=== PATIENT | female | born 1945 | race Caucasian/White ===

== ENCOUNTER 2016-12-27 19:38 | Inpatient (IN) | payer MEDICARE ==
[~2016-12-27] VITALS: Ht 165.1 cm; Wt 67.7 kg
[~2016-12-27 19:38] MED LIST: ACET-171 PO; AMLO5TAB2 PO; ASPI-973 PO; CALC1CAP22 PO; CHOL500050 PO; GABA-500 PO; HYDR25TA4 PO; LACT1CAP65 PO; LOSA50TA37 PO; METO50TA3 PO; MULT-1018 PO; PSYL1CAP3 PO; TOLT2TAB5 PO
[2016-12-27 19:40] VITALS: BP 129/64; PULSE 84; RESP 16; O2SAT 98
--- NOTE | 2016-12-27 19:58 | ED.REPORT ---
HPI-Abd Pain F 40 and Over Date of Service Dec 27, 2016 ED Provider: Kayleigh Ruiz MD Patient is a 71 year old female with a history of colon cancer, multiple small bowel obstructions, diverticulitis, partial colon resection with prior colostomy , and hypertension who presents to the ED with abdominal pain and nausea that began this morning. Patient localized her pain to her upper abdomen, more severe on the left than on the right. The pain waxes and wanes, both cramping and sharp. Her abdomen feels distended. Her pain is improved with laying down and rest. She reports only eating broth and Jell-o today, which sometimes is enough to stop her symptoms from progressing to a small bowel obstruction. However, her symptoms have only increased in severity since onset. She last had a bowel movement at 10am this morning and believes that she could have another bowel movement soon. She has not had diarrhea. Patient reports having a "sour stomach", with the sensation of acid reflux. She reports a subjective fever and chills. Patient states that she has not been able to eat or drink for the past few hours. She denies vomiting. Patient was last admitted to the hospital for a small bowel obstruction in June 2016, which did not require surgical intervention. Nursing Notes Stated Complaint: SBO Chief Complaint: Female Abdominal Pain Nursing Notes Reviewed: Yes Allergies: Coded Allergies: TAPE (Verified Allergy, Severe, BLISTERS (PAPER OK), 06/16/16) PLASTIC TAPE CAUSES SEVERE RASH 05/08/15: Pt reports she had an allergic reaction specifically to latex tape. latex (Verified Allergy, Unknown, 06/16/16) Scheduled Amlodipine (Amlodipine) 5 Mg Tablet 5 MG PO HS Aspirin (Aspirin) 81 Mg Tablet 81 MG PO DAILYWL Calcium Carbonate/Vitamin D3 (Calcium 500 mg Chewable Tablet) 1 Each Tab.chew 1 EACH PO QAM Cholecalciferol (Vitamin D3) (Vitamin D3) 50,000 Unit Capsule 50,000 UNIT PO Sundays Gabapentin (Gabapentin) 100 Mg Capsule 300 MG PO BID Hydrochlorothiazide (Hydrochlorothiazide) 25 Mg Tablet 12.5 MG PO QAM Lactobacillus Acidophilus (Probiotic) 1 Each Capsule 1 EACH PO DAILYWL Losartan Potassium (Losartan Potassium) 50 Mg Tablet 100 MG PO QAM Metoprolol Tartrate (Metoprolol Tartrate) 50 Mg Tablet 50 MG PO BIDBL morning and noon Multivitamin (Multi Vitamin Daily) 1 Each Tablet 1 EACH PO DAILYWL Psyllium Husk/Ca Carbonate (Metamucil Plus Calcium Capsule) 1 Each Capsule 1 EACH PO BID Tolterodine Tartrate (Tolterodine Tartrate) 2 Mg Tablet 2 MG PO BIDBL MORNING AND NOON Scheduled PRN Acetaminophen (Acetaminophen) 500 Mg Tablet 1,000 MG PO Q6H PRN PRN pain/fever General Time Seen by MD: 19:57 Chief Complaint Abdominal pain, Nausea Hx Obtained From: Patient Arrived By: Walk-in Sudden in Onset?: No Onset Occurred: 9 - 12 hours ago Symptom Duration: Waxes and wanes Progression since Onset: Gradually worsening Location: : Abdomen upper Quality: Painful Severity: Current: Severe Severity: Maximum: Severe Recent Healthcare: No recent doctor visit, No recent hospitalization Similar Sx Previous: Yes Past Medical History Past Medical History Colon cancer multiple small bowel obstructions Diverticulitis Reports: Hypertension Reports: Depression Past Surgical History Partial colon resection history of colostomy (reversed) Reports: Hysterectomy Smoking History Former Smoker Social History Alcohol Use: Denies alcohol use Drug Use: Denies drug use Other Social History: Good social support, Local resident Ambulatory Status Independent Review of Systems Constitutional: Reports: Chills, Fever (subjective) GI: Reports: Abdominal pain, Nausea, Denies: Constipation, Diarrhea, Vomiting Complete sys rev & neg: except as marked. Physical Exam Vital Signs Vital Signs (First) Date Time Temp Pulse Resp B/P Pulse Ox O2 Delivery O2 Flow Rate FiO2 12/27/16 19:40 37.1 84 16 129/64 98 Room Air Initial VS: Reviewed Head / Eyes: Atraumatic, Normocephalic, PERRL Neck: Supple, Full range of motion Extremities: Vascular intact, Neuro intact, No swelling Skin: Warm, Dry, No cyanosis Neurologic: Alert, Oriented, Nonfocal Psychiatric: Mood/affect normal, Behavior normal, Normal thought content General/Constitutional: Awake, Alert, No acute distress Respiratory / Chest: Breath sounds NL, Breath sounds = bilat, No respiratory distress, No rales, No rhonchi, No wheezing Cardiovascular: Heart rate NL, Regular rhythm, Heart sounds NL, No gallop, No murmurs, No rubs Abdomen: Soft, No guarding, No rebound Bowel Sounds / Distention: Positive: Bowel sounds hyperactive (high-pitched), Distention mild left-sided abdominal pain Back: Painless range of motion, No CVA tenderness Interpretation & Diagnostics Lab Results Interpretation Result Diagram: 12/27/16202412/27/162024 Test 12/27/16 20:25 12/27/16 22:33 White Blood Count 8.1th/mm3 (3.8-10.1) Red Blood Count 4.16mil/mm3 (3.90-5.20) Hemoglobin 14.3g/dL (12.0-15.6) Hematocrit 39.3% (35.0-46.0) Mean Corpuscular Volume 94.5fL (81-100) Mean Corpuscular Hemoglobin 34.4pg (27.0-35.0) Mean Corpuscular Hemoglobin Concent 36.4% (32.0-37.0) Red Cell Distribution Width 11.8% (12.3-15.4) Platelet Count 186bil/L (150-400) Neutrophils (%) (Auto) 76.5% (40-74) Lymphocytes (%) (Auto) 13.3% (14-46) Monocytes (%) (Auto) 6.4% (4-12) Eosinophils (%) (Auto) 3.2% (0-5) Basophils (%) (Auto) 0.5% (0-3) Sodium Level 137mEq/L (134-144) Potassium Level 3.3mEq/L (3.5-5.2) Chloride Level 99mEq/L (97-108) Carbon Dioxide Level 22mmol/L (18-29) Blood Urea Nitrogen 11mg/dL (8-27) Creatinine 0.63mg/dL (0.57-1.00) Estimat Glomerular Filtration Rate 133mL/min (>59) Glucose Level 109mg/dL (60-99) Lactic Acid Level 1.5mmol/L (0.4-2.0) Calcium Level 9.3mg/dL (8.5-10.1) Magnesium Level 1.9mg/dL (1.6-2.6) Total Bilirubin 0.5mg/dL (0.0-1.2) Aspartate Amino Transf (AST/SGOT) 22U/L (0-50) Alanine Aminotransferase (ALT/SGPT) 14U/L (0-32) Alkaline Phosphatase 51U/L (25-165) Total Protein 6.2g/dL (6.4-8.4) Albumin 3.9g/dL (3.4-5.0) Lipase 21U/L (13-60) Hold Davis Top Tube Received (Received) Urine Color Yellow (YELLOW) Urine Appearance Clear (CLEAR,HAZY) Urine pH 8.0 (5.0-8.0) Urine Specific [place] <1.005 (1.003-1.035) Urine Protein Negativemg/dL (NEG,TRACE) Urine Glucose (UA) Negativemg/dL (NEGATIVE) Urine Ketones Negativemg/dL (NEGATIVE) Urine Occult Blood Negative (NEGATIVE) Urine Nitrite Negative (NEGATIVE) Urine Bilirubin Negative (NEGATIVE) Urine Urobilinogen Normalmg/dL (NORMAL) Urine Leukocyte Esterase Negative (NEGATIVE) Urine RBC 0-2/hpf (0-2) Urine WBC 0-5/hpf (0-5) Urine Epithelial Cells Occasional/hpf (NONE-MOD) Urine Crystals None seen (NONE SEEN) Urine Bacteria Few/hpf (NONE-FEW) Urine Hyaline Casts None/lpf (NONE) Urine Granular Casts None seen (NONE SEEN) Urine Waxy Casts None seen (NONE SEEN) Urine Red Blood Cell Casts None seen (NONE SEEN) Urine White Blood Cell Casts None seen (NONE SEEN) Urine Mucus None seen (None Seen) Urine Trichomonas None seen (NONE SEEN) Urine Yeast None (NONE SEEN) Urinalysis Comment None Urine Culture Reflexed Not indicated CT Abd / Pelvis Interpretation IMPRESSION: 1. Findings compatible with small bowel obstruction with transition zone in the left lower quadrant. 2. Small cystic lesion in the uncinate process of the pancreas stable compared to prior examination. Lesion likely represents a small IPMN. 3. Small hepatic cyst stable compared to prior examinations. 4. No free intraperitoneal air. 5. Trace free fluid noted adjacent to dilated loops of small bowel in the left lower quadrant which may be related to developing high-grade partial or complete obstruction. 6. Short segment, focal stricture involving the small bowel left lower quadrant stable compared to prior examinations. Dictated by: Brenda Mann MD, PhD on 12/27/2016 at 22:01 Approved by: Brenda Mann MD, PhD on 12/27/2016 at 22:11 Study type: Abdom CT oral contrast Interpretation / Wet Read by: Interpret - Radiologist Re-Eval/Medical Decision Med Decision/Clinical Course 71-year-old female with past medical history of hypertension and hyperlipidemia and colon cancer status post partial resection and multiple bowel obstructions here with abdominal pain. Differential diagnosis includes but is not limited to , bowel obstruction versus partial small bowel obstruction versus pancreatitis versus urinary tract infection. CBC and lipase are unremarkable. CMP shows mild hypokalemia. CT scan shows high-grade small bowel obstruction and left lower quadrant. I discussed the case with surgery Dr. Medrano and hospitalist Dr Cancino who was accepted the patient for admission. Patient is not vomiting at this time, and has requested not to have an NG tube placed. At this time, I do not feel she needs one. Hospitalist agrees. Patient is aware and amenable to admission at this time. Source of Hx: Old records Re-Evaluation/Progress : Time of Eval: 22:27 Re-Evaluation/Progress Note: Rechecked the patient. She was informed that there is a small bowel obstruction on CT scan. She will need an NG tube. No acute problem on labs. Patient will be admitted to the hospital for further care. Patient understands and agrees with this plan. All questions were addressed. Consultation #1: Referral / Consult Name: Luna Medrano MD Consulted With: Surgeon Call Returned at: 22:17 [employer] Manager: Will see patient, Agrees with eval, Agrees with plan Note: Spoke with Dr. Medrano, surgeon, about the patient's case. She agrees to act as consult. She requests an NG tube. Consultation #2: Referral / Consult Name: Anna Cancino MD Consulted With: Hospitalist Call Returned at: 22:30 [employer] Hotel Manager: Will see patient, Agrees with eval, Agrees with plan, Accepts admit Note: Spoke with Dr Cancino, hospitalist, who agrees to accept admit. Counseled Regarding: Diagnosis, Lab results, Need for admission Discharge & Departure Primary Impression: Small bowel obstruction Disposition: ADMITTED TO HOSPITAL Discharge Condition All VS Reviewed: Yes Condition: Stable Referrals: Darius Haskins DO (PCP) Ramya Attestation Portions of this note were transcribed by Klaudia Milan. I, Dr. Ruiz personally performed the history, physical exam and medical decision-making; I reviewed and confirmed the accuracy of the information in the transcribed note. Signed by: Ramya Hook, 12/27/2016 2229 copies to: Darius Haskins Rebecca A MD Dec 27, 2016 19:58 Klaudia Milan Dec 27, 2016 20:05
[2016-12-27] MEDS ORDERED: 0.9% Sodium Chloride 1,000 ML IV ONE (20:13)
[2016-12-27] MEDS ORDERED: HYDROmorphone 1 mg/mL Inj IVPUSH ONE (20:15)
[2016-12-27] MEDS ORDERED: Ondansetron 2 mg/mL 2 mL Inj IVPUSH ONE (20:15)
[2016-12-27] MEDS ORDERED: Iohexol 240 mg/mL 10 mL Inj PO ONE (20:20)
[2016-12-27 20:40] LABS: BASOPHILS % (AUTO) 0.5 % (0-3); EOSINOPHILS % (AUTO) 3.2 % (0-5); MONOCYTES % (AUTO) 6.4 % (4-12); Mean Corpuscular Hemoglobin 34.4 pg (27.0-35.0); Mean Corpuscular Volume 94.5 fL (81-100); NEUTROPHILS % (AUTO) 76.5 % (40-74); Platelet Count 186 bil/L (150-400)
[2016-12-27] MEDS ORDERED: Iohexol 300 mg/mL 30 mL Inj PO ONE ×2 (20:40→20:45)
[2016-12-27 21:01] LABS: Magnesium 1.9 mg/dL (1.6-2.6)
[2016-12-27] MEDS ORDERED: 0.9% Sodium Chloride 500 ML IV ONE (21:25)
--- NOTE | 2016-12-27 22:12 | DRSVH ---
PROCEDURE: CT ABDOMEN AND PELVIS WITH CONTRAST ([id number]) INDICATIONS: Abdominal pain. History of small bowel obstruction. TECHNIQUE: After the administration of oral and intravenous contrast, 5 mm thick sections acquired from the diap hragms to the symphysis. 5 mm thick coronal and sagittal reformats were performed. For radiation do se reduction, the following was used: automated exposure control, adjustment of mA and/or kV accordi ng to patient size. COMPARISON: [facility], CT, CT ABD [facility] CON[facility]2016[facility], [facility]/2015, 20:45. [facility], CT, CT CHEST ABD PELVIS W CO N, 07/07/2016, 10:32. FINDINGS: Image quality: Excellent. ABDOMEN: Lung bases: Lung bases are clear. Heart size is normal. Solid organs: Liver and spleen are normal in size and enhancement. Small hypoattenuating lesion left lobe of the liver is stable compared to prior examination. Gallbladder is within normal limits. Fortino iary system is non-dilated. 8 mm cyst in the uncinate process of the pancreas is stable compared to p rior examinations. No adrenal nodules. Kidneys are normal in size and enhancement, without hydronep hrosis. Peritoneum and bowel: Multiple dilated loops of small bowel are noted. Loops of small bowel are dil ated to 3.5 cm in diameter. Transition zone is in the left lower quadrant. Short segment, focal str icture and left lower quadrant loop of small bowel is noted (series 2, image 50). No free air identi fied. Trace free fluid noted in the left lower pelvis adjacent to loops of dilated small bowel. Nodes and vessels: No retroperitoneal or mesenteric adenopathy. Aorta and inferior vena cava are no rmal in caliber. Miscellaneous: No ventral hernias. PELVIS: Genitourinary: Bladder is poorly visualized due to artifact related to hip arthroplasties. Miscellaneous: No inguinal hernias or adenopathy. Bones: No suspicious bony lesions. No vertebral body compression fractures. Spine degenerative disc disease and facet arthropathy are noted. Bilateral hip arthroplasties are noted. IMPRESSION: 1. Findings compatible with small bowel obstruction with transition zone in the left lower quadrant. 2. Small cystic lesion in the uncinate process of the pancreas stable compared to prior examination. Lesion likely represents a small IPMN. 3. Small hepatic cyst stable compared to prior examinations. 4. No free intraperitoneal air. 5. Trace free fluid noted adjacent to dilated loops of small bowel in the left lower quadrant which may be related to developing high-grade partial or complete obstruction. 6. Short segment, focal stricture involving the small bowel left lower quadrant stable compared to p rior examinations. Dictated by: Brenda Mann MD, PhD on 12/27/2016 at 22:01 Approved by: Brenda Mann MD, PhD on 12/27/2016 at 22:11
[2016-12-27] MEDS ORDERED: Ondansetron 2 mg/mL 2 mL Inj IVPUSH PRN ×2 (22:35→23:40)
[2016-12-27] MEDS ORDERED: Alum-Mag Hydrox-Simeth 30 mL Suspension PO PRN (22:35)
[2016-12-27 22:44] LABS: APPEARANCE,URINE CLEAR (CLEAR,HAZY); COLOR,URINE YELLOW (YELLOW); OCCULT BLOOD,URINE NEGATIVE (NEGATIVE); UROBILINOGEN,URINE NORMAL (NORMAL)
[2016-12-27 22:55] VITALS: BP 144/75; PULSE 83; RESP 16; O2SAT 97
[2016-12-27] MEDS ORDERED: CALC-952 PO (23:05)
[2016-12-27] MEDS ORDERED: Potassium Chloride Inj 20 MEQ in Dextrose 5% 250 ML IV ONE (23:40)
--- NOTE | 2016-12-27 23:59 | PCM.HPMED ---
Subjective Date of Service Dec 27, 2016 Primary Provider: Admitting Physician: Anna Cancino MD Primary Care Physician: Darius Haskins DO Attending Physician: Anna Cancino MD Admit Status: From the Emergency Department, Full Admit, Non-Telemetry Chief Complaint: Abdominal pain History of Present Illness: Is a 71-year-old female who has a history of colon cancer which was diagnosed 4 years ago. She comes in with recurrent small bowel obstructions. The last was 06/15/2016 which was managed here conservatively. She noted this morning she started having some abdominal pain with some nausea. She had no vomiting. She denies any fevers or chills. He will like her abdomen is distended. Her evaluation in the emergency room include CT of abdomen and pelvis with results as follows: atient Name: TEE ARIAS MR#: [id number] [place] [facility] [place] Phys: Kayleigh Ruiz MD Date of Service: 12/27/162012 PROCEDURE: CT ABDOMEN AND PELVIS WITH CONTRAST ([id number]) INDICATIONS: Abdominal pain. History of small bowel obstruction. TECHNIQUE: After the administration of oral and intravenous contrast, 5 mm thick sections acquired from the diaphragms to the symphysis. 5 mm thick coronal and sagittal reformats were performed. For radiation dose reduction, the following was used : automated exposure control, adjustment of mA and/or kV according to patient size. COMPARISON: [facility], CT, CT ABD PELVIS W CON, 06/15/2016, 22:19. [facility], CT, CT ABD PELVIS W CON, 08/09/2015, 20:45. [facility], CT, CT CHEST ABD PELVIS W CON, 07/07/2016, 10:32. FINDINGS: Image quality: Excellent. ABDOMEN: Lung bases: Lung bases are clear. Heart size is normal. Solid organs: Liver and spleen are normal in size and enhancement. Small hypoattenuating lesion left lobe of the liver is stable compared to prior examination. Gallbladder is within normal limits. Biliary system is non- dilated. 8 mm cyst in the uncinate process of the pancreas is stable compared to prior examinations. No adrenal nodules. Kidneys are normal in size and enhancement, without hydronephrosis. Peritoneum and bowel: Multiple dilated loops of small bowel are noted. Loops of small bowel are dilated to 3.5 cm in diameter. Transition zone is in the left lower quadrant. Short segment, focal stricture and left lower quadrant loop of small bowel is noted (series 2, image 50). No free air identified. Trace free fluid noted in the left lower pelvis adjacent to loops of dilated small bowel. Nodes and vessels: No retroperitoneal or mesenteric adenopathy. Aorta and inferior vena cava are normal in caliber. Miscellaneous: No ventral hernias. PELVIS: Genitourinary: Bladder is poorly visualized due to artifact related to hip arthroplasties. Miscellaneous: No inguinal hernias or adenopathy. Bones: No suspicious bony lesions. No vertebral body compression fractures. Spine degenerative disc disease and facet arthropathy are noted. Bilateral hip arthroplasties are noted. IMPRESSION: 1. Findings compatible with small bowel obstruction with transition zone in the left lower quadrant. 2. Small cystic lesion in the uncinate process of the pancreas stable compared to prior examination. Lesion likely represents a small IPMN. 3. Small hepatic cyst stable compared to prior examinations. 4. No free intraperitoneal air. 5. Trace free fluid noted adjacent to dilated loops of small bowel in the left lower quadrant which may be related to developing high-grade partial or complete obstruction. 6. Short segment, focal stricture involving the small bowel left lower quadrant stable compared to prior examinations. Dictated by: Brenda Mann MD, PhD on 12/27/2016 at 22:01 Approved by: Brenda Mann MD, PhD on 12/27/2016 at 22:11 Review of Systems: All other Review of systems are reviewed and are negative Allergies Coded Allergies: TAPE (Verified Allergy, Severe, BLISTERS (PAPER OK), 06/16/16) PLASTIC TAPE CAUSES SEVERE RASH 05/08/15: Pt reports she had an allergic reaction specifically to latex tape. latex (Verified Allergy, Unknown, 06/16/16) Home Medications Scheduled Amlodipine (Amlodipine) 5 Mg Tablet 5 MG PO HS Aspirin (Aspirin) 81 Mg Tablet 81 MG PO DAILYWL Calcium Carbonate/Vitamin D3 (Calcium 500 mg Chewable Tablet) 1 Each Tab.chew 1 EACH PO QAM Cholecalciferol (Vitamin D3) (Vitamin D3) 50,000 Unit Capsule 50,000 UNIT PO Sundays Gabapentin (Gabapentin) 100 Mg Capsule 300 MG PO BID Hydrochlorothiazide (Hydrochlorothiazide) 25 Mg Tablet 12.5 MG PO QAM Lactobacillus Acidophilus (Probiotic) 1 Each Capsule 1 EACH PO DAILYWL Losartan Potassium (Losartan Potassium) 50 Mg Tablet 100 MG PO QAM Metoprolol Tartrate (Metoprolol Tartrate) 50 Mg Tablet 50 MG PO BIDBL morning and noon Multivitamin (Multi Vitamin Daily) 1 Each Tablet 1 EACH PO DAILYWL Psyllium Husk/Ca Carbonate (Metamucil Plus Calcium Capsule) 1 Each Capsule 1 EACH PO BID Tolterodine Tartrate (Tolterodine Tartrate) 2 Mg Tablet 2 MG PO BIDBL MORNING AND NOON Scheduled PRN Acetaminophen (Acetaminophen) 500 Mg Tablet 1,000 MG PO Q6H PRN PRN pain/fever PMH Past Medical History Colon cancer multiple small bowel obstructions Diverticulitis Reports: Hypertension Reports: Depression Past Surgical History Partial colon resection history of colostomy (reversed) Reports: Hysterectomy Family History Family history significant for ovarian carcinoma, stroke, hypertension, diabetes Social History Hx Alcohol Use: Yes Hx Substance Use: No Hx Tobacco Use: No Smoking Status: Former Smoker Living Arrangement: with Family Exam Vital Signs Vital Sign - Last Date Time Temp Pulse Resp B/P Pulse Ox O2 Delivery O2 Flow Rate FiO2 12/27/16 22:55 36.7 83 16 144/75 97 Room Air Exam Constitutional: Elderly woman in no acute distress Head: Normocephalic atraumatic Eyes: PERRLA DC Neck carotids plus over 4 without bruits Chest: Clear to auscultation Heart: Regular rate and rhythm S1-S2 without murmur Abdomen: Soft ,tender in LLQ pain ,BS absent Ext: No pedal edema Skin: No rashes Psychiatric: Mood and affect are appropriate : Alert and oriented 3, motor strength is intact bilaterally Lab and Diagnostics Labs Laboratory Tests 72 Hours Test 12/27/16 20:25 12/27/16 22:33 White Blood Count 8.1th/mm3 (3.8-10.1) Red Blood Count 4.16mil/mm3 (3.90-5.20) Hemoglobin 14.3g/dL (12.0-15.6) Hematocrit 39.3% (35.0-46.0) Mean Corpuscular Volume 94.5fL (81-100) Mean Corpuscular Hemoglobin 34.4pg (27.0-35.0) Mean Corpuscular Hemoglobin Concent 36.4% (32.0-37.0) Red Cell Distribution Width 11.8% (12.3-15.4) Platelet Count 186bil/L (150-400) Neutrophils (%) (Auto) 76.5% (40-74) Lymphocytes (%) (Auto) 13.3% (14-46) Monocytes (%) (Auto) 6.4% (4-12) Eosinophils (%) (Auto) 3.2% (0-5) Basophils (%) (Auto) 0.5% (0-3) Sodium Level 137mEq/L (134-144) Potassium Level 3.3mEq/L (3.5-5.2) Chloride Level 99mEq/L (97-108) Carbon Dioxide Level 22mmol/L (18-29) Blood Urea Nitrogen 11mg/dL (8-27) Creatinine 0.63mg/dL (0.57-1.00) Estimat Glomerular Filtration Rate 133mL/min (>59) Glucose Level 109mg/dL (60-99) Lactic Acid Level 1.5mmol/L (0.4-2.0) Calcium Level 9.3mg/dL (8.5-10.1) Magnesium Level 1.9mg/dL (1.6-2.6) Total Bilirubin 0.5mg/dL (0.0-1.2) Aspartate Amino Transf (AST/SGOT) 22U/L (0-50) Alanine Aminotransferase (ALT/SGPT) 14U/L (0-32) Alkaline Phosphatase 51U/L (25-165) Total Protein 6.2g/dL (6.4-8.4) Albumin 3.9g/dL (3.4-5.0) Lipase 21U/L (13-60) Hold Davis Top Tube Received (Received) Urine Color Yellow (YELLOW) Urine Appearance Clear (CLEAR,HAZY) Urine pH 8.0 (5.0-8.0) Urine Specific [place] <1.005 (1.003-1.035) Urine Protein Negativemg/dL (NEG,TRACE) Urine Glucose (UA) Negativemg/dL (NEGATIVE) Urine Ketones Negativemg/dL (NEGATIVE) Urine Occult Blood Negative (NEGATIVE) Urine Nitrite Negative (NEGATIVE) Urine Bilirubin Negative (NEGATIVE) Urine Urobilinogen Normalmg/dL (NORMAL) Urine Leukocyte Esterase Negative (NEGATIVE) Urine RBC 0-2/hpf (0-2) Urine WBC 0-5/hpf (0-5) Urine Epithelial Cells Occasional/hpf (NONE-MOD) Urine Crystals None seen (NONE SEEN) Urine Bacteria Few/hpf (NONE-FEW) Urine Hyaline Casts None/lpf (NONE) Urine Granular Casts None seen (NONE SEEN) Urine Waxy Casts None seen (NONE SEEN) Urine Red Blood Cell Casts None seen (NONE SEEN) Urine White Blood Cell Casts None seen (NONE SEEN) Urine Mucus None seen (None Seen) Urine Trichomonas None seen (NONE SEEN) Urine Yeast None (NONE SEEN) Urinalysis Comment None Urine Culture Reflexed Not indicated Result Diagram: 12/27/16202412/27/162024 Assessment & Plan # Small bowel Obstruction, acute, present on admission Nothing by mouth, IV fluids IV morphine when necessary pain NG tube was attempted in the ER but was difficult so aborted Monitor daily labs # History of hypertension, chronic, present on admission Current oral medications for now if required we will go ahead and give IV antihypertensive medication when necessary #History of colon cancer, with partial colon resection prior colostomy, chronic , present on admission History of recurrent bleed is cancer free #DVT prophylaxis Subcutaneous prophylactic heparin #CODE STATUS Patient is full code Pain Evaluation: Adequate Pain Control GI Prophylaxis: H2 isaac VTE Prophylaxis: Sub-Q Heparin (Unfractionated) Resuscitation Status: CPR: Attempt Resuscitation Time spent 60 minutes Anna Cancino MD Dec 27, 2016 23:59
[2016-12-28 00:27] VITALS: BP 132/77; PULSE 77; RESP 16; O2SAT 97
[2016-12-28 00:45] VITALS: BP 148/75; PULSE 70; RESP 17; O2SAT 99
[2016-12-28] MEDS: 0.9% Sodium Chloride 1,000 ML IV SCH ×2 (02:27→12:37)
[2016-12-28] MEDS: Heparin 5,000 Unit/mL Inj SUBQ SCH ×2 (02:32→08:50)
--- NOTE | 2016-12-28 04:57 | NUR ---
Admit Patient arrived to unit at 0045, able to self transfer to bed. Alert and oriented, able to make needs known. Denies Nausea at this, CP, SOB, and slight abdominal discomfort in lower left quadrant. Oriented to room.
[2016-12-28 05:47] VITALS: BP 115/74; PULSE 67; RESP 17; O2SAT 99
[2016-12-28 06:25] LABS: BASOPHILS % (AUTO) 0.6 % (0-3); EOSINOPHILS % (AUTO) 5.9 % (0-5); MONOCYTES % (AUTO) 8.2 % (4-12); Mean Corpuscular Hemoglobin 34.2 pg (27.0-35.0); Mean Corpuscular Volume 97.3 fL (81-100); NEUTROPHILS % (AUTO) 59.6 % (40-74); Platelet Count 165 bil/L (150-400)
[2016-12-28] MEDS ORDERED: Famotidine Inj 20 MG in IV Premix 1 EACH IV SCH (08:30)
[2016-12-28 10:53] VITALS: BP 131/65; PULSE 71; RESP 18; O2SAT 100
--- NOTE | 2016-12-28 12:22 | DRSVH ---
PROCEDURE: X-RAY ACUTE ABDOMINAL SERIES ([id number]) INDICATIONS: f/u sbo TECHNIQUE: One view chest and two views of the abdomen were acquired. COMPARISON: [facility], CT, CT ABD [facility]EL[facility] W CON, 12/27/2016, 21:35[facility] 3VW, 06/17/2016, 9:24. FINDINGS: Surgical changes and devices: None. Chest: Lungs are clear. Heart size is normal. No pleural effusions. No pneumoperitoneum. Abdomen: The residual contrast is noted throughout the colon. There is an overall improved appearance of previous dilated small bowel. Bones: No suspicious bony lesions. IMPRESSION: Improving appearance of previously dilated small bowel and partial obstruction. Dictated by: Marquita Kaiser M.D. on 12/28/2016 at 12:19 Approved by: Marquita Kaiser M.D. on 12/28/2016 at 12:20
[2016-12-28 14:17] VITALS: BP 123/71; PULSE 73; RESP 18; O2SAT 99
--- NOTE | 2016-12-28 14:50 | NUR ---
Social Work-initial assessment: Data:See initial assessment. Pt is a 71 y/o female who was admitted on 12/27/16 for SBO per H&P. Pt's insurance is [employer] and PCP is Darius Haskins MD. EMR Reviewed. Pt has no readmission score listed. SW met with pt to discuss discharge planning, SW role explained. Pt is alert and oriented x3. Pt resides at home alone in a single level home with no stairs. Pt remains independent with basic ADLs. Pt uses a walker or cane at baseline and drives a POV. Pt has prior HH history with [facility] during cancer treatment. Pt states she has completed DPOA/advanced directive for her daughter, Mary Dela Cruz. It is not on file and SW requested a copy. Pt has detention care benefits through [employer] but no VA benefits. Sw does not anticipate that patient will have any needs at discharge. Pt's daughter to provide transport home at discharge. SW provided phone number and plan on white board in room. SW will continue to follow. Assessment:Pt who resides at home alone and is independent at baseline. Plan: Pt likely to discharge to home with no needs in POV. SW will continue to follow pt in case a need arises. LUISANA Leblanc Addendum: 12/28/16 at 1503 by MILTON HAWLEY SS Amended: Links added.
--- NOTE | 2016-12-28 15:29 | NUR ---
spiritual care: routine pt agreeable for eucharistic visitor.
--- NOTE | 2016-12-28 15:51 | NUR ---
GI Denies any nausea/vomiting. Patient passing gas and had 2 BM's today. Tolerated advanced diet of clear and full liquids. Ambulating independently into bathroom. IV fluids running. No complaints of any pain. Anxious to get home. Continue to monitor.
--- NOTE | 2016-12-28 15:53 | CONS ---
[address] [address] CONSULTATION REPORT PATIENT: TEE ARIAS : 1945 MR#: [id number] ADMIT: 12/27/2016 JOB ID: [id number] DATE OF SERVICE: 12/28/2016 SURGICAL CONSULTATION: General Surgery service has asked to consult on this 71-year-old woman with a small bowel obstruction by Dr. Ruiz in the emergency department and medicine service. DATE OF SERVICE: HISTORY OF PRESENT ILLNESS: The patient had a partial colectomy four years ago for colon cancer, is currently felt to have no evidence of disease. She has had several small bowel obstructions, most recent one being in June of 2016, which resolved with nasogastric tube placement. She presents with abdominal distention, feeling much as she did prior to her previous small-bowel obstruction. She was diagnosed with small bowel obstruction by CAT scan and admitted to the hospital. This morning she tells me that they were unable to place her NG tube in the emergency department last night. However, she n notes that she is now passing gas, and had a normal bowel movement this morning. She feels as if she is all better. PAST MEDICAL HISTORY: Hypertension and depression as above. MEDICATIONS: 1. Gabapentin. 2. Metoprolol. 3. Tolterodine. 4. Amlodipine. 5. Aspirin. 6. Vitamin D. 7. Losartan. 8. Multiple [id number]-[id number] medications. ALLERGIES: TAPE. LATEX. SOCIAL HISTORY: Ex-smoker, negative daily alcohol use. FAMILY HISTORY/REVIEW OF SYSTEMS: Per admission history and physical. PHYSICAL EXAMINATION: The patient is sitting in a hospital bed. Feeling quite well, looking in no acute distress. Vital signs are within normal limits. Directed examination shows that her abdomen has normal bowel tones, is soft, no incisional hernias, no groin hernias. LABORATORY DATA: Her white count was normal last night. It is 5.4 this morning. Her hematocrit is 35.8, down with some appropriate antibiotic fluid overnight. Electrolytes are normal. LFTs remain normal. Lipase was normal last night. IMAGING: I have reviewed her abdominal CT from last night and concur that she does have some dilated small bowel, possibly some decompressed distal small bowel, though I am not convinced the transition point is in the left lower quadrant. Abdominal films today are normal with all her in CT contrast in her colon. IMPRESSION AND PLAN: Partial small bowel obstruction, resolved. I have recommended that she go ahead and eat and be discharged this evening, tomorrow if she is unable to get a ride. She and I had a discussion as to what would be the threshold of recurrent small-bowel obstructions that would lead one to go towards early surgery and I have given her my advice that is primarily driven by her desires and relative values. We also reviewed the fact that they were going to cut back to every three year colonoscopies with her last colonoscopy having been roughly one year ago this January and I have recommended that she still get a colonoscopy sometime this calender year for followup for her colon cancer.
--- NOTE | 2016-12-28 16:24 | PCM.DIMED ---
Discharge Instructions Date of Service Dec 28, 2016 Dates of Hospitalization Dec 27, 2016 at 23:27 Discharge Diagnosis Discharge Diagnosis # Small bowel Obstruction, acute, present on admission,resolved # History of hypertension, chronic, present on admission #History of colon cancer, with partial colon resection prior colostomy, chronic , present on admission Diet Other (liquid diet, advance the diet slowly as tolerated.) Activity Limited until seen by PCP Call your provider Fever or Chills, Shortness of breath, Bleeding, Chest pain, Vomitting, Excessive diarrhea, Weakness (unilateral) Patient Instructions You were hospitalized to due to small bowel obstruction secondary to possibly adhesions. Obstruction relieved on conservative measures. Moving bowel . Tolerated liquid diet. Please follow-up with PCP in 1 week. Please get referral for colonoscopy in the coming few weeks. Follow-up plan Please follow-up with PCP in 1 week. Follow-up is Dr. Dorantes in 3-=4 weeks . Follow-up Provider: Prudencio Murray Follow-up with PCP in: 1 week Provider: Ralph Dorantes MD Follow-up in: 4 weeks Gene Kennedy MD Dec 28, 2016 16:24
--- NOTE | 2016-12-28 16:33 | PCM.DC.MED ---
Discharge Summary Date of Service Dec 28, 2016 Dates of Hospitalization Date of Hospital Admission Dec 27, 2016 at 23:27 Date of Discharge: Dec 28, 2016 Providers: Admitting Physician: Anna Cancino MD Primary Care Physician: Darius Haskins DO Attending Physician: Anna Cancino MD Diagnosis at Time of Discharge Diagnosis at Time of Discharge # Small bowel Obstruction, acute, present on admission,resolved # History of hypertension, chronic, present on admission #History of colon cancer, with partial colon resection prior colostomy, chronic , present on admission Consultations surgery Dr Dorantes Procedures XRay, CTs & MRIs PROCEDURE: CT ABDOMEN AND PELVIS WITH CONTRAST ([id number]) INDICATIONS: Abdominal pain. History of small bowel obstruction. IMPRESSION: 1. Findings compatible with small bowel obstruction with transition zone in the left lower quadrant. 2. Small cystic lesion in the uncinate process of the pancreas stable compared to prior examination. Lesion likely represents a small IPMN. 3. Small hepatic cyst stable compared to prior examinations. 4. No free intraperitoneal air. 5. Trace free fluid noted adjacent to dilated loops of small bowel in the left lower quadrant which may be related to developing high-grade partial or complete obstruction. 6. Short segment, focal stricture involving the small bowel left lower quadrant stable compared to prior examinations. Dictated by: Brenda Mann MD, PhD on 12/27/2016 at 22:01 PROCEDURE: X-RAY ACUTE ABDOMINAL SERIES ([id number]) IMPRESSION: Improving appearance of previously dilated small bowel and partial obstruction. Dictated by: Marquita Kaiser M.D. on 12/28/2016 at 12:19 Brief History Per history of present illness performance by on 12/27/16 Is a 71-year-old female who has a history of colon cancer which was diagnosed 4 years ago. She comes in with recurrent small bowel obstructions. The last was 06/15/2016 which was managed here conservatively. She noted this morning she started having some abdominal pain with some nausea. She had no vomiting. She denies any fevers or chills. He will like her abdomen is distended. Her evaluation in the emergency room include CT of abdomen and pelvis with results as follows: Hospital Course # Small bowel Obstruction, acute, present on admission. Resolved NG tube was attempted in the ER but was difficult so aborted Patient initially passed gas. She eventually had large bowel movement. Pain and distention resolved -XR done shows improving obstruction. -Started on clear liquid diets and advanced to full liquid diet and tolerated well -Discussed with surgeon Dr Dorantes , discharged home -Recommend colonoscopy in the next few weeks # History of hypertension, chronic, present on admission Current oral medications #History of colon cancer, with partial colon resection prior colostomy, chronic , present on admission History of recurrent bleed is cancer free Recommend repeat colonoscopy Condition on discharge stable Exam Vital Signs (Last) Date Time Temp Pulse Resp B/P Pulse Ox O2 Delivery O2 Flow Rate FiO2 12/28/16 14:17 36.8 73 18 123/71 99 Room Air Exam Constitutional: Elderly woman in no acute distress Head: Normocephalic atraumatic Eyes: PERRLA DC Neck carotids plus over 4 without bruits Chest: Clear to auscultation Heart: Regular rate and rhythm S1-S2 without murmur Abdomen: Soft ,nontender , active bowel sound Ext: No pedal edema Skin: No rashes Psychiatric: Mood and affect are appropriate : Alert and oriented 3, motor strength is intact bilaterally Test 12/27/16 20:25 12/27/16 22:33 12/28/16 05:45 Lactic Acid Level 1.5mmol/L (0.4-2.0) Lipase 21U/L (13-60) Hold Davis Top Tube Received (Received) Urine Color Yellow (YELLOW) Urine Appearance Clear (CLEAR,HAZY) Urine pH 8.0 (5.0-8.0) Urine Specific [place] <1.005 (1.003-1.035) Urine Protein Negativemg/dL (NEG,TRACE) Urine Glucose (UA) Negativemg/dL (NEGATIVE) Urine Ketones Negativemg/dL (NEGATIVE) Urine Occult Blood Negative (NEGATIVE) Urine Nitrite Negative (NEGATIVE) Urine Bilirubin Negative (NEGATIVE) Urine Urobilinogen Normalmg/dL (NORMAL) Urine Leukocyte Esterase Negative (NEGATIVE) Urine RBC 0-2/hpf (0-2) Urine WBC 0-5/hpf (0-5) Urine Epithelial Cells Occasional/hpf (NONE-MOD) Urine Crystals None seen (NONE SEEN) Urine Bacteria Few/hpf (NONE-FEW) Urine Hyaline Casts None/lpf (NONE) Urine Granular Casts None seen (NONE SEEN) Urine Waxy Casts None seen (NONE SEEN) Urine Red Blood Cell Casts None seen (NONE SEEN) Urine White Blood Cell Casts None seen (NONE SEEN) Urine Mucus None seen (None Seen) Urine Trichomonas None seen (NONE SEEN) Urine Yeast None (NONE SEEN) Urinalysis Comment None Urine Culture Reflexed Not indicated White Blood Count 5.4th/mm3 (3.8-10.1) Red Blood Count 3.68mil/mm3 (3.90-5.20) Hemoglobin 12.6g/dL (12.0-15.6) Hematocrit 35.8% (35.0-46.0) Mean Corpuscular Volume 97.3fL (81-100) Mean Corpuscular Hemoglobin 34.2pg (27.0-35.0) Mean Corpuscular Hemoglobin Concent 35.2% (32.0-37.0) Red Cell Distribution Width 12.0% (12.3-15.4) Platelet Count 165bil/L (150-400) Neutrophils (%) (Auto) 59.6% (40-74) Lymphocytes (%) (Auto) 25.5% (14-46) Monocytes (%) (Auto) 8.2% (4-12) Eosinophils (%) (Auto) 5.9% (0-5) Basophils (%) (Auto) 0.6% (0-3) Sodium Level 141mEq/L (134-144) Potassium Level 3.8mEq/L (3.5-5.2) Chloride Level 107mEq/L (97-108) Carbon Dioxide Level 21mmol/L (18-29) Blood Urea Nitrogen 8mg/dL (8-27) Creatinine 0.52mg/dL (0.57-1.00) Estimat Glomerular Filtration Rate 167mL/min (>59) Glucose Level 89mg/dL (60-99) Calcium Level 8.1mg/dL (8.5-10.1) Magnesium Level 2.0mg/dL (1.6-2.6) Total Bilirubin 0.5mg/dL (0.0-1.2) Aspartate Amino Transf (AST/SGOT) 17U/L (0-50) Alanine Aminotransferase (ALT/SGPT) 12U/L (0-32) Alkaline Phosphatase 44U/L (25-165) Total Protein 5.0g/dL (6.4-8.4) Albumin 3.3g/dL (3.4-5.0) Discharge Medications Discharge Medications Amlodipine (Amlodipine) 5 Mg Tablet 5 MG PO HS (Reported) Aspirin (Aspirin) 81 Mg Tablet 81 MG PO DAILYWL (Reported) Calcium Carbonate/Vitamin D3 (Calcium 500 mg Chewable Tablet) 1 Each Tab.chew 1 EACH PO QAM (Reported) Cholecalciferol (Vitamin D3) (Vitamin D3) 50,000 Unit Capsule 50,000 UNIT PO Sundays (Reported) Gabapentin (Gabapentin) 100 Mg Capsule 300 MG PO BID (Reported) Hydrochlorothiazide (Hydrochlorothiazide) 25 Mg Tablet 12.5 MG PO QAM (Reported ) Lactobacillus Acidophilus (Probiotic) 1 Each Capsule 1 EACH PO DAILYWL (Reported ) Losartan Potassium (Losartan Potassium) 50 Mg Tablet 100 MG PO QAM (Reported) Metoprolol Tartrate (Metoprolol Tartrate) 50 Mg Tablet 50 MG PO BIDBL (Reported ) morning and noon Multivitamin (Multi Vitamin Daily) 1 Each Tablet 1 EACH PO DAILYWL (Reported) Psyllium Husk/Ca Carbonate (Metamucil Plus Calcium Capsule) 1 Each Capsule 1 EACH PO BID (Reported) Tolterodine Tartrate (Tolterodine Tartrate) 2 Mg Tablet 2 MG PO BIDBL (Reported ) MORNING AND NOON As needed Acetaminophen (Acetaminophen) 500 Mg Tablet 1,000 MG PO Q6H PRN PRN pain/fever ( Reported) Followup Plan Disposition: Home Follow-up plan Please follow-up with PCP in 1 week. Follow-up is Dr. Dorantes in 3-=4 weeks . Discharge Diet: Other (liquid diet, advance the diet slowly as tolerated.) Discharge Activity: Limited until seen by PCP Patient Instructions You were hospitalized to due to small bowel obstruction secondary to possibly adhesions. Obstruction relieved on conservative measures. Moving bowel . Tolerated liquid diet. Please follow-up with PCP in 1 week. Please get referral for colonoscopy in the coming few weeks. Follow-up Provider: Prudencio Murray Follow-up with PCP in: 1 week Provider: Ralph Dorantes MD Follow-up in: 4 weeks Time spent 40 minutes reevaluating patient multiple times and coordinating discharge copies to: Prudencio Murray; Ralph Dorantes MD, Melaku MD Dec 28, 2016 16:33
--- NOTE | 2016-12-28 16:57 | NUR ---
DISCHARGE Patient's IV catheter was removed with catheter intact. Got dressed independently. Reviewed types of foods for full liquid diet. Encouraged patient to take it slow with advancing diet. Aware of follow up appointments recommended by MD. Ambulated off unit with steady gait, all personal belongings with patient. Left with friend to drive her home.
[2017-03-23] MEDS ORDERED: MULT-1018 PO (15:55)
[2017-03-23] MEDS ORDERED: calcium (15:55)
[2017-03-23] MEDS ORDERED: aller-tec (15:55)
[2017-03-23] MEDS ORDERED: LOSA50TA3 PO (15:55)
[2017-03-23] MEDS ORDERED: ACET-171 PO (15:55)
[2017-03-23] MEDS ORDERED: TOLT2TAB5 PO (15:55)
[2017-03-23] MEDS ORDERED: BACI1CAP6 PO (15:55)
[2017-03-23] MEDS ORDERED: AMLO5TAB2 PO (15:55)
[2017-03-23] MEDS ORDERED: GABA-500 PO (15:55)
[2017-03-23] MEDS ORDERED: ASPI-973 PO (15:55)
[2017-03-23] MEDS ORDERED: METO50TA3 PO (15:55)
[2017-03-23] MEDS ORDERED: HYDR25TA4 PO (15:55)
== END 2016-12-28 17:00 | disposition home or self-care (01) | DRG 390 ==
LOC: SED 19:38 → OSC 23:27
PROVIDERS: ADMIT Specialist; ATTEND Specialist
DX: K56.60 Unspecified intestinal obstruction (principal); I10 Essential (primary) hypertension; E78.5 Hyperlipidemia, unspecified; Z79.82 Long term (current) use of aspirin; Z87.891 Personal history of nicotine dependence; Z85.038 Personal history of other malignant neoplasm of large intestine

== ENCOUNTER 2017-02-03 18:41 | Inpatient (IN) | payer MEDICARE ==
[~2017-02-03] VITALS: Ht 165.1 cm; Wt 67.2 kg
[~2017-02-03 18:41] MED LIST changes: +CALC-952 PO; -CALC1CAP22 PO
[2017-02-03 18:47] VITALS: BP 144/90; PULSE 81; RESP 16; O2SAT 98
[2017-02-03] MEDS ORDERED: 0.9% Sodium Chloride 1,000 ML IV ONE (19:49)
[2017-02-03] MEDS ORDERED: Ondansetron 2 mg/mL 2 mL Inj IVPUSH ONE (19:50)
[2017-02-03] MEDS ORDERED: HYDROmorphone 0.5 mg/0.5 mL iSecure Syringe IVPUSH PRN (19:50)
[2017-02-03 20:39] LABS: BASOPHILS % (AUTO) 0.1 % (0-3); EOSINOPHILS % (AUTO) 0.6 % (0-5); MONOCYTES % (AUTO) 5.3 % (4-12); Mean Corpuscular Hemoglobin 34.3 pg (27.0-35.0); NEUTROPHILS % (AUTO) 80.6 % (40-74); Platelet Count 233 bil/L (150-400)
[2017-02-03 20:58] LABS: APPEARANCE,URINE CLEAR (CLEAR,HAZY); COLOR,URINE YELLOW (YELLOW); OCCULT BLOOD,URINE LARGE (NEGATIVE)
[2017-02-03 20:59] LABS: UROBILINOGEN,URINE NORMAL (NORMAL)
[2017-02-03 22:20] LABS: Magnesium 1.6 mg/dL (1.6-2.6)
--- NOTE | 2017-02-03 22:24 | ED.REPORT ---
HPI-General Illness Date of Service Feb 03, 2017 ED Provider: Jose Luis Gomez MD Patient is a 71 year old female with a medical history including colon cancer, multiple SBOs, diverticulitis, and hypertension s/p multiple abdominal surgeries including colon resection who presents to the ED with left-sided abdominal pain onset gradually this afternoon, before lunchtime. At onset, the pain felt like a "gas bubble" in her abdomen. Associated symptoms include nausea and vomiting (x4). The patient has been passing gas. Her last BM was at 1700. The patient denies hematochezia, melena, hematemesis, or other symptoms. Her last meal was lunch. Nursing Notes Stated Complaint: POSSIBLE SBO Chief Complaint: Female Abdominal Pain Nursing Notes Reviewed: Yes Allergies: Coded Allergies: TAPE (Verified Allergy, Severe, BLISTERS (PAPER OK), 02/03/17) PLASTIC TAPE CAUSES SEVERE RASH 05/08/15: Pt reports she had an allergic reaction specifically to latex tape. latex (Verified Allergy, Unknown, 02/03/17) Scheduled Amlodipine (Amlodipine) 5 Mg Tablet 5 MG PO HS Aspirin (Aspirin) 81 Mg Tablet 81 MG PO DAILYWL Calcium Carbonate/Vitamin D3 (Calcium 500 mg Chewable Tablet) 1 Each Tab.chew 1 EACH PO QAM Cholecalciferol (Vitamin D3) (Vitamin D3) 50,000 Unit Capsule 50,000 UNIT PO Sundays Gabapentin (Gabapentin) 100 Mg Capsule 300 MG PO BID Hydrochlorothiazide (Hydrochlorothiazide) 25 Mg Tablet 12.5 MG PO QAM Lactobacillus Acidophilus (Probiotic) 1 Each Capsule 1 EACH PO DAILYWL Losartan Potassium (Losartan Potassium) 50 Mg Tablet 100 MG PO QAM Metoprolol Tartrate (Metoprolol Tartrate) 50 Mg Tablet 50 MG PO BIDBL morning and noon Multivitamin (Multi Vitamin Daily) 1 Each Tablet 1 EACH PO DAILYWL Psyllium Husk/Ca Carbonate (Metamucil Plus Calcium Capsule) 1 Each Capsule 1 EACH PO BID Tolterodine Tartrate (Tolterodine Tartrate) 2 Mg Tablet 2 MG PO BIDBL MORNING AND NOON Scheduled PRN Acetaminophen (Acetaminophen) 500 Mg Tablet 1,000 MG PO Q6H PRN PRN pain/fever General Time Seen by MD: 19:43 Chief Complaint Abdominal pain Hx Obtained From: Patient Arrived By: Walk-in Sudden in Onset?: No Onset Occurred: 5 - 8 hours ago Symptom Duration: Since onset Location: : Abdomen Severity: Current: Moderate Severity: Maximum: Moderate Pertinent Negative: Relieved by nothing Recent Healthcare: No recent doctor visit Similar Sx Previous: Yes Past Medical History Past Medical History Colon cancer multiple small bowel obstructions Diverticulitis Reports: Hypertension Reports: Depression Past Surgical History Partial colon resection History of colostomy (reversed) Reports: Hysterectomy Smoking History Former Smoker Social History Alcohol Use: Denies alcohol use Drug Use: Denies drug use Other Social History: Good social support, Local resident Ambulatory Status Independent Review of Systems Full Review of Systems Constitutional: Denies: Fever Respiratory: Denies: Non-productive cough, Shortness of breath GI: Reports: Abdominal pain (Left-sided), Nausea, Vomiting (x4), Denies: Hematemesis, Hematochezia, Melena Complete sys rev & neg: except as marked. Physical Exam Vital Signs Vital Signs Date Time Temp Pulse Resp B/P Pulse Ox O2 Delivery O2 Flow Rate FiO2 02/03/17 18:47 37.2 81 16 144/90 98 Room Air Initial VS: Reviewed Head / Eyes: Atraumatic, Normocephalic Neurologic: Alert, Oriented, Nonfocal Psychiatric: Mood/affect normal, Behavior normal, Normal thought content General/Constitutional: Awake, Alert, No acute distress ENT: Airway patent Mouth: Positive: Mucous membranes dry (Mildly) Respiratory / Chest: Breath sounds NL, Breath sounds = bilat, No respiratory distress Cardiovascular: Heart rate NL, Regular rhythm, Heart sounds NL, No gallop, No murmurs, No rubs, Peripheral circulation NL (Good distal pulses) Abdomen: Soft, Non-tender, No guarding, No rebound Bowel Sounds / Distention: Positive: Bowel sounds hypoactive (Sporadic ), Distention mild Well-healed midline surgical scar and LUQ surgical scar Lower Extremity / Pelvis / MS: Inspection NL, No swelling, Non-tender Skin: Warm, Dry Well-perfused Interpretation & Diagnostics Lab Results Interpretation Result Diagram: 02/03/17201902/03/172134 Test 02/03/17 20:10 02/03/17 20:20 02/03/17 21:35 Urine Color Yellow (YELLOW) Urine Appearance Clear (CLEAR,HAZY) Urine pH 6.0 (5.0-8.0) Urine Specific Organ 1.030 (1.003-1.035) Urine Protein 300mg/dL (NEG,TRACE) Urine Glucose (UA) Negativemg/dL (NEGATIVE) Urine Ketones 15mg/dL (NEGATIVE) Urine Occult Blood Large (NEGATIVE) Urine Nitrite Negative (NEGATIVE) Urine Bilirubin Negative (NEGATIVE) Urine Urobilinogen Normalmg/dL (NORMAL) Urine Leukocyte Esterase Small (NEGATIVE) Urine RBC 11-50/hpf (0-2) Urine WBC 0-5/hpf (0-5) Urine Epithelial Cells Few/hpf (NONE-MOD) Urine Crystals None seen (NONE SEEN) Urine Bacteria Few/hpf (NONE-FEW) Urine Hyaline Casts None/lpf (NONE) Urine Granular Casts None seen (NONE SEEN) Urine Waxy Casts None seen (NONE SEEN) Urine Red Blood Cell Casts None seen (NONE SEEN) Urine White Blood Cell Casts None seen (NONE SEEN) Urine Mucus None seen (None Seen) Urine Trichomonas None seen (NONE SEEN) Urine Yeast None (NONE SEEN) Urinalysis Comment None Urine Culture Reflexed Indicated White Blood Count 14.8th/mm3 (3.8-10.1) Red Blood Count 4.63mil/mm3 (3.90-5.20) Hemoglobin 15.9g/dL (12.0-15.6) Hematocrit 44.0% (35.0-46.0) Mean Corpuscular Volume 95.0fL (81-100) Mean Corpuscular Hemoglobin 34.3pg (27.0-35.0) Mean Corpuscular Hemoglobin Concent 36.1% (32.0-37.0) Red Cell Distribution Width 12.1% (12.3-15.4) Platelet Count 233bil/L (150-400) Neutrophils (%) (Auto) 80.6% (40-74) Lymphocytes (%) (Auto) 13.2% (14-46) Monocytes (%) (Auto) 5.3% (4-12) Eosinophils (%) (Auto) 0.6% (0-5) Basophils (%) (Auto) 0.1% (0-3) Hold Purple Top Tube Received (Received) Hold Blue Top Tube Received (Received) Sodium Level 140mEq/L (134-144) Potassium Level 2.9mEq/L (3.5-5.2) Chloride Level 102mEq/L (97-108) Carbon Dioxide Level 21mmol/L (18-29) Blood Urea Nitrogen 14mg/dL (8-27) Creatinine 0.59mg/dL (0.57-1.00) Estimat Glomerular Filtration Rate 144mL/min (>59) Glucose Level 122mg/dL (60-99) Calcium Level 8.8mg/dL (8.5-10.1) Magnesium Level 1.6mg/dL (1.6-2.6) Total Bilirubin 0.9mg/dL (0.0-1.2) Aspartate Amino Transf (AST/SGOT) 18U/L (0-50) Alanine Aminotransferase (ALT/SGPT) 12U/L (0-32) Alkaline Phosphatase 51U/L (25-165) Total Protein 5.9g/dL (6.4-8.4) Albumin 3.9g/dL (3.4-5.0) Lipase 21U/L (13-60) Hold Red Top Tube Received (Received) Hold Davis Top Tube Received (Received) CT Abd / Pelvis Interpretation IMPRESSION: Distal partial small bowel obstruction. Transmitted to ED at 02/03/17 - 10:44:44 PM PDT Study type: Abdominal CT IV contrast Interpretation / Wet Read by: Interpret - Radiologist (Raymond Mesa M.D.) Re-Eval/Medical Decision Med Decision/Clinical Course Patient is a 71 year old female with a medical history including colon cancer, multiple SBOs, diverticulitis, and hypertension s/p multiple abdominal surgeries including colon resection who presents to the ED with left-sided abdominal pain onset gradually this afternoon, before lunchtime. At onset, the pain felt like a "gas bubble" in her abdomen. Associated symptoms include nausea and vomiting (x4). The patient has been passing gas. Her last BM was at 1700. The patient denies hematochezia, melena, hematemesis, or other symptoms. Her last meal was lunch. Here in the emergency department the patient is afebrile stable vital signs and examination as above. Of note she has sparse bowel sounds and somewhat distended abdomen. She states that this feels like her previous bowel obstructions. LABS: CBC shows leukocytosis at 14.8 Stable hematocrit Hypokalemia at 2.9 CMP is otherwise unremarkable UA shows large blood, small leukocyte esterase, few bacteria Here in the ER the patient was given a 1 L normal saline bolus and placed on maintenance fluid. Her pain was treated with IV hydromorphone and her nausea was treated with Zofran. Potassium was repleted with 20 mEq of IV potassium. She was made nothing by mouth. CT scan was obtained that demonstrated partial small bowel obstruction with a transition point in the right lower quadrant. This with the patient as well as our recommendation for nasogastric tube decompression. She stated that previous bowel obstructions had resolved without necessity of nasogastric tube and that she would like to avoid this. Given that she was not having any active emesis I opted to hold off on the NG tube for the minute. He was discussed with surgeon Dr. Whitman who agrees to consult on the patient during admission. No need for emergent operative intervention at this time. Patient discussed with hospitalist and transferred to the lin in stable condition. Source of Hx: Old records Time of Eval: 23:10 Patient Status: Condition improved Re-Evaluation/Progress Note: Discussed with patient CT and lab results, diagnosis, and plan for admit. Patient agrees with plan for care and all questions were addressed. The patient refuses an NG tube at this time. Her previous SBOs have been managed medically. 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 Counseled Regarding: Diagnosis, Lab results, Need for admission Discharge & Departure Primary Impression: SBO (small bowel obstruction) Additional Impressions: History of abdominal surgery History of colon cancer Nausea and vomiting Vomiting type: unspecified Vomiting Intractability: unspecified Qualified Code: R11.2 - Nausea with vomiting, unspecified Dehydration Disposition: ADMITTED TO HOSPITAL Discharge Condition All VS Reviewed: Yes Condition: Improved Referrals: Darius Haskins DO (PCP) Lalo[place] Attestation Portions of this note were transcribed by Elva East. I, Dr. Gomez, personally performed the history, physical exam, and medical decision-making; I reviewed and confirmed the accuracy of the information in the transcribed note. Signed by: Ramya Geiger, 02/03/2017, 23:50 copies to: Darius Haskins Beck O MD Feb 03, 2017 22:24 ELVA EAST Feb 03, 2017 23:14
[2017-02-03] MEDS ORDERED: 0.9% Sodium Chloride 1,000 ML IV SCH (22:25)
[2017-02-03] MEDS ORDERED: HYDROmorphone 0.5 mg/0.5 mL iSecure Syringe IVPUSH ONE (22:25)
[2017-02-03] MEDS ORDERED: Potassium Chloride Inj 20 MEQ in Dextrose 5% 250 ML IV ONE (22:25)
[2017-02-03] MEDS: 0.9% Sodium Chloride 1,000 ML IV SCH (23:27)
[2017-02-03] MEDS ORDERED: Alum-Mag Hydrox-Simeth 30 mL Suspension PO PRN (23:30)
[2017-02-03] MEDS ORDERED: Polyethylene Glycol (PEG) 17 Gm Powder PO PRN (23:30)
[2017-02-03] MEDS ORDERED: Ondansetron 2 mg/mL 2 mL Inj IVPUSH PRN (23:30)
[2017-02-04 00:08] VITALS: BP 141/88; PULSE 78; RESP 16; O2SAT 99
[2017-02-04 00:40] VITALS: BP 118/74; PULSE 74; RESP 16; O2SAT 97
[2017-02-04] MEDS ORDERED: HYDROmorphone 0.5 mg/0.5 mL iSecure Syringe IVPUSH PRN (00:55)
--- NOTE | 2017-02-04 00:56 | NUR ---
ADMIT; 71 yr old female to room 1022 via gurney from e.r. about 0015 with c/o left abd pain, nausea and vomiting which started about noon and worsened since. H/o colon ca and sbo's. Npo. Pt states abd pain lessened since pain rx in e.r. Denies nausea at this time. Dr. Hernandez just in and talked with patient. Addendum: 02/04/17 at 0123 by RM VILLATORO RN per e.r. report, pt refused ng tube.
[2017-02-04] MEDS: Heparin 5,000 Unit/mL Inj SUBQ SCH ×3 (01:10→16:12)
--- NOTE | 2017-02-04 02:50 | NUR ---
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
--- NOTE | 2017-02-04 03:25 | PCM.HPMED ---
Subjective Date of Service Feb 03, 2017 Primary Provider: Admitting Physician: Primary Care Physician: Darius Haskins DO Attending Physician: Admit Status: From the Emergency Department, Full Admit, Remote Telemetry Chief Complaint: Acute abdominal pain History of Present Illness: Amanda Christy is a 71 year old female with Colon cancer in remission, multiple Small bowel obstructions, diverticulitis, and hypertension s/p colon resection presents to [facility] emergency department with left-sided abdominal pain. Onset gradually this afternoon, before lunchtime. At onset, the pain felt like a "gas bubble." non radiating. Aggravating factors include eating. Relieving factors include nothing by mouth and clear liquid diet. Associated symptoms include nausea and vomiting (x4). The patient has been passing gas. Her last BM was at 1700. The patient denies hematochezia, melena, hematemesis. Her last meal was at lunch (she ate a mushroom burger) She has had numerous SBO's over the last few years. Symptoms included pain on left mid to upper abdomen but no nausea or vomiting (with current episode). Symptoms resolved over a 24-hour period with diet modulation during her previous similar episode. A CT scan of the abdomen and pelvis with contrast confirmed the small bowel obstruction in the transition zone in the left lower quadrant. There is also a short segment, focal stricture involving the small bowel in the left lower quadrant, stable compared to prior examinations. Patient was diagnosed with sigmoid colon cancer in 2011 and underwent surgical resection. The tumor had invaded the uterus so she had a hysterectomy simultaneously. She had adjuvant therapy with pelvic radiation. Tumor is classified as a T4b N0. Patient went through numerous surveillance colonoscopies since cancer was found with normal examinations. Last colonoscopy was January 2016 with finding of a benign hyperplastic polyp. Her oncologist advised her to have repeat colonoscopy 3 years from that date. Case discussed with Dr Gomez, he contacted surgery and will be admitted. Patient refuses NG tube placement Review of Systems: Pertinent positives as noted in HPI. All other systems were reviewed and are negative Allergies Coded Allergies: TAPE (Verified Allergy, Severe, BLISTERS (PAPER OK), 02/03/17) PLASTIC TAPE CAUSES SEVERE RASH 05/08/15: Pt reports she had an allergic reaction specifically to latex tape. Home Medications From [facility], not yet confirmed Amanda Christy [id number] 1945 01/11/2017 02:20 PM 10/20 Medication Directions acetaminophen 500 mg tablet Aller-Guille 10 mg tablet take 1 tablet by oral route every day amlodipine 5 mg tablet take 1 tablet by oral route every day for high blood pressure. Aspir-81 81 mg tablet,delayed release take 1 tablet by oral route every day Calcium 500 500 mg calcium (1,250 mg) tablet take 1 Tablet by Oral route 2 times every day Cozaar 50 mg tablet take 1 tablet (50MG) by ORAL route 2 times every day for high blood pressure. gabapentin 100 mg capsule take 3 capsule by oral route 3 times every day hydrochlorothiazide 25 mg tablet take 1/2 tablet (12.5MG) by ORAL route every day for high blood pressure. metoprolol tartrate 50 mg tablet take 1 tablet (50MG) by ORAL route 2 times every day with meals for high blood pressure. Multiple Vitamins tablet take 1 tablet by oral route every day with food Probiotic 10 billion cell capsule tolterodine 2 mg tablet take 1 tablet by oral route 2 times every day for bladder Vitamin D2 50,000 unit capsule take 1 capsule by oral route every week PMH Colon cancer multiple small bowel obstructions Diverticulitis Hypertension Depression Vitamin D deficiency Hypertriglyceridemia . Surgical History Partial colon resection history of colostomy (reversed) Hysterectomy Family History Family history significant for ovarian carcinoma, stroke, hypertension, diabetes Social History Hx Alcohol Use: Yes Hx Substance Use: No Hx Tobacco Use: No Smoking Status: Former Smoker Exam Vital Signs Vital Sign - Last Date Time Temp Pulse Resp B/P Pulse Ox O2 Delivery O2 Flow Rate FiO2 02/03/17 18:47 37.2 81 16 144/90 98 Room Air Exam General: Alert, Oriented X3, Cooperative, No acute Distress Eyes: PERRLA, Scleral Anicteric Mouth: Mouth Normal, Mucous Membranes Moist/[place] Neck: Supple, no Thyromegaly, trachea central. Chest & Lungs: Clear to auscultation & percussion, No adventitious breath sounds, no crackles, no wheeze Cardiovascular: Normal S1, Normal S2, No Murmurs/Rubs/Gallops, Regular Rate/ Rhythm, (No JVD, no peripheral edema) Pulses: Radial (present and equal), Dorsalis Pedi (present and equal) Abdomen: Soft, diffuse tenderness, mild distended, hypoactive bowel tones. Musculoskeletal: Unremarkable. Normal range of motion, no swollen or erythematous joints Extremities: No edema, no cyanosis, no clubbing. Skin: No rashes. Warm and dry, no erythematous areas Neurological: Grossly neurologically intact, Normal Speech, Sensation Intact Lymphatic: Lymph nodes Cervical and Axillary not palpable. Lab and Diagnostics Labs Laboratory Tests Test 02/03/17 20:10 02/03/17 20:20 02/03/17 21:35 Urine Color Yellow (YELLOW) Urine Appearance Clear (CLEAR,HAZY) Urine pH 6.0 (5.0-8.0) Urine Specific Enigma 1.030 (1.003-1.035) Urine Protein 300mg/dL (NEG,TRACE) Urine Glucose (UA) Negativemg/dL (NEGATIVE) Urine Ketones 15mg/dL (NEGATIVE) Urine Occult Blood Large (NEGATIVE) Urine Nitrite Negative (NEGATIVE) Urine Bilirubin Negative (NEGATIVE) Urine Urobilinogen Normalmg/dL (NORMAL) Urine Leukocyte Esterase Small (NEGATIVE) Urine RBC 11-50/hpf (0-2) Urine WBC 0-5/hpf (0-5) Urine Epithelial Cells Few/hpf (NONE-MOD) Urine Crystals None seen (NONE SEEN) Urine Bacteria Few/hpf (NONE-FEW) Urine Hyaline Casts None/lpf (NONE) Urine Granular Casts None seen (NONE SEEN) Urine Waxy Casts None seen (NONE SEEN) Urine Red Blood Cell Casts None seen (NONE SEEN) Urine White Blood Cell Casts None seen (NONE SEEN) Urine Mucus None seen (None Seen) Urine Trichomonas None seen (NONE SEEN) Urine Yeast None (NONE SEEN) Urinalysis Comment None Urine Culture Reflexed Indicated White Blood Count 14.8th/mm3 (3.8-10.1) Red Blood Count 4.63mil/mm3 (3.90-5.20) Hemoglobin 15.9g/dL (12.0-15.6) Hematocrit 44.0% (35.0-46.0) Mean Corpuscular Volume 95.0fL (81-100) Mean Corpuscular Hemoglobin 34.3pg (27.0-35.0) Mean Corpuscular Hemoglobin Concent 36.1% (32.0-37.0) Red Cell Distribution Width 12.1% (12.3-15.4) Platelet Count 233bil/L (150-400) Neutrophils (%) (Auto) 80.6% (40-74) Lymphocytes (%) (Auto) 13.2% (14-46) Monocytes (%) (Auto) 5.3% (4-12) Eosinophils (%) (Auto) 0.6% (0-5) Basophils (%) (Auto) 0.1% (0-3) Hold Purple Top Tube Received (Received) Hold Blue Top Tube Received (Received) Sodium Level 140mEq/L (134-144) Potassium Level 2.9mEq/L (3.5-5.2) Chloride Level 102mEq/L (97-108) Carbon Dioxide Level 21mmol/L (18-29) Blood Urea Nitrogen 14mg/dL (8-27) Creatinine 0.59mg/dL (0.57-1.00) Estimat Glomerular Filtration Rate 144mL/min (>59) Glucose Level 122mg/dL (60-99) Calcium Level 8.8mg/dL (8.5-10.1) Magnesium Level 1.6mg/dL (1.6-2.6) Total Bilirubin 0.9mg/dL (0.0-1.2) Aspartate Amino Transf (AST/SGOT) 18U/L (0-50) Alanine Aminotransferase (ALT/SGPT) 12U/L (0-32) Alkaline Phosphatase 51U/L (25-165) Total Protein 5.9g/dL (6.4-8.4) Albumin 3.9g/dL (3.4-5.0) Lipase 21U/L (13-60) Hold Red Top Tube Received (Received) Hold Davis Top Tube Received (Received) Microbiology 02/03/17 Urine Culture, Received Pending Result Diagram: 02/03/17201902/03/17 [id number] X-Rays, CTs and MRIs CT Abd / Pelvis Interpretation IMPRESSION: Distal partial small bowel obstruction. Transmitted to ED at 02/03/17 - 10:44:44 PM PDT Study type: Abdominal CT IV contrast Interpretation / Wet Read by: Interpret - Radiologist (Raymond Mesa M.D.) Assessment & Plan Amanda Christy is a 71 year old female with Colon cancer in remission, multiple Small bowel obstructions, diverticulitis, and hypertension s/p colon resection presents to [facility] emergency department with left-sided abdominal pain 1. Small bowel Obstruction. Present on admission. Ongoing Due to Adhesive disease or possible Colonic stricture - nothing by mouth - IV fluids resuscitations - holding diuretics to avoid hypovolemia/dehydration - anti emetic therapy as needed 2 Hypokalemia. Present on admission Due to GI loss from vomiting - monitor on telemetry - supplemented and will continue to check levels 3 Hypertension - continue Amlodipine 5 mg daily, Cozaar 50 mg bid and Metoprolol 50 mg bid - holding Hydrochlorothiazide 4 Colon Cancer Presumed in remission. Last colonoscopy 1 year ago - continue close surveillance with Dr Booth - Acetaminophen as needed for mild pain/fever/headache - Bowel regimen as needed - Antiemetic as needed Patient admitted under inpatient status with expected length of stay > 2 midnights for severity of present symptoms, complexities of treatment plan and risk for adverse event . Resuscitation Status: CPR: Attempt Resuscitation Abraham Brandon MD Feb 03, 2017 23:34
--- NOTE | 2017-02-04 05:04 | NUR ---
PAIN; pt is asleep.
[2017-02-04 05:35] VITALS: PULSE 77
[2017-02-04 06:00] VITALS: BP 116/69; PULSE 84; RESP 16; O2SAT 97
[2017-02-04 07:27] LABS: BASOPHILS % (AUTO) 0.3 % (0-3); EOSINOPHILS % (AUTO) 2.7 % (0-5); MONOCYTES % (AUTO) 10.7 % (4-12); Mean Corpuscular Hemoglobin 33.8 pg (27.0-35.0); Mean Corpuscular Volume 97.4 fL (81-100); NEUTROPHILS % (AUTO) 67.5 % (40-74); Platelet Count 174 bil/L (150-400)
--- NOTE | 2017-02-04 07:51 | DRSVH ---
PROCEDURE: CT ABDOMEN AND PELVIS WITH CONTRAST ([id number]) INDICATIONS: abd pain, sbo? TECHNIQUE: After the administration of intravenous contrast, 5 mm thick sections acquired from the diaphragm to the symphysis. 5 mm coronal and sagittal reformats were acquired. For radiation dose reduction, the following was used: automated exposure control, adjustment of mA and/or kV according to patient kathryn e. COMPARISON: [facility], CT, CT ABD PELVIS W CON, 05/07/2015, 21:06. [facility], CT, CT ABD PELVIS W CON ENTEROGRPH, 01/26/2017, 12:51. FINDINGS: Image quality: Excellent. ABDOMEN: Lung bases: Lung bases are clear. Heart size is normal. Solid organs: Liver and spleen are normal in size and enhancement. 1 cm hypoattenuating lesion is no donald in the lateral segment of left lobe may represent small cyst or hemangioma. Diffuse hepatic fatty infiltration is noted. Gallbladder is within normal limits.. Biliary system is non dilated. Pancre as enhances normally. No adrenal nodules. Kidneys demonstrate normal size and enhancement, without hydronephrosis. Peritoneum and bowel: Small hiatal hernia is noted. Multiple dilated loops of small bowel are noted. Loops of small bowel are dilated up to 3.5 cm in maximum diameter. Transition zone is in the right lo wer quadrant. No free fluid or air. The appendix is not definitely visualized. Multiple surgical cli ps noted in the region of the cecum possibly related to prior appendectomy; please correlate with stacey gical history. Anastomotic sutures/suture granulomas noted at the junction of the sigmoid colon and r ectum. Multiple diverticula are scattered throughout the colon without evidence of diverticulitis. Nodes and vessels: No retroperitoneal or mesenteric adenopathy by size criteria. Aorta and inferior vena cava are normal in size. Miscellaneous: No ventral hernias. PELVIS: Genitourinary: Bladder wall thickness is normal. Miscellaneous: No inguinal hernias or adenopathy. Bones: No suspicious bony lesions. No vertebral body compression fractures. Bilateral hip arthropla sties are noted. IMPRESSION: 1. Small bowel obstruction with transition zone in the mid to distal ileum. 2. Hepatic steatosis. 3. Colonic diverticulosis without evidence of diverticulitis. Dictated by: Brenda Mann MD, PhD on 02/04/2017 at 7:42 Approved by: Brenda Mann MD, PhD on 02/04/2017 at 7:50
[2017-02-04] MEDS: 0.9% Sodium Chloride 1,000 ML IV SCH ×2 (07:58→19:27)
--- NOTE | 2017-02-04 08:52 | PCM.PNMED ---
Subjective Date of Service Feb 04, 2017 Subjective Occasional twinges of abdominal pain which she attributes to soreness from vomiting. No further nausea and vomiting although she does not have any appetite. Feels mildly distended. Has passed a small amount of gas per rectum but less than yesterday and no bowel movement. Exam Vital Signs Vital Sign - Last Date Time Temp Pulse Resp B/P Pulse Ox O2 Delivery O2 Flow Rate FiO2 02/04/17 06:00 37.0 84 16 116/69 97 Room Air Intake and Output 02/03/17 02/03/17 02/04/17 Cumulative From/Thru 15:00 23:00 07:00 02/03/17 18:47 - 02/04/17 06:54 Intake Total 2000 ml 869 ml 2869 ml Output Total 1240 ml 1240 ml Balance 2000 ml -371 ml 1629 ml Intake Oral 0 ml 0 ml IV Total 2000 ml 869 ml 2869 ml Output Urine Total 1240 ml 1240 ml Exam General: Alert and oriented, no acute distress Heart: Regular Lungs: Clear anteriorly and laterally Abdomen: Soft, bowel tones present, mild distention but not tympanitic, mild left mid to lower tenderness Extremities: No pedal edema IVs and Medications Medications Reviewed: Medications were reviewed in detail Lab and Diagnostics Result Diagram: 02/04/17 0705 02/03/17 2135 X-Rays, CTs and MRIs CT Abd / Pelvis Interpretation IMPRESSION: Distal partial small bowel obstruction. Transmitted to ED at 02/03/17 - 10:44:44 PM PDT Study type: Abdominal CT IV contrast Interpretation / Wet Read by: Interpret - Radiologist (Raymond Mesa M.D.) Assessment & Plan Amanda Laguna is a 71 year old female with Colon cancer in remission, multiple Small bowel obstructions, diverticulitis, and hypertension s/p colon resection presents to [facility] emergency department with left-sided abdominal pain 1. Small bowel Obstruction. Present on admission. Ongoing Due to Adhesive disease or possible Colonic stricture - nothing by mouth - IV fluids resuscitations - holding diuretics to avoid hypovolemia/dehydration - anti emetic therapy as needed - Surgery consultation still pending 2 Hypokalemia. Present on admission Due to GI loss from vomiting plus hydrochlorothiazide - monitor on telemetry - supplemented, improved from 2.9 on admission to 3.8 this morning - Recheck tomorrow # Abnormal urinalysis, rule out infection - Urine culture from last evening is no growth this morning, continue to follow 3 Hypertension - Resume Amlodipine 5 mg daily, Cozaar 100 mg daily and Metoprolol 50 mg bid -Continue to hold Hydrochlorothiazide 4 Colon Cancer Presumed in remission. Last colonoscopy 1 year ago - continue close surveillance with Dr Booth - Acetaminophen as needed for mild pain/fever/headache - Bowel regimen as needed - Antiemetic as needed Patient admitted under inpatient status with expected length of stay > 2 midnights for severity of present symptoms, complexities of treatment plan and risk for adverse event . Pain Evaluation: Adequate Pain Control VTE Mechanical Devices: Intermittant Pneumatic CD Resuscitation Status: CPR: Attempt Resuscitation Lisset Bowman MD Feb 04, 2017 08:52
[2017-02-04 13:41] VITALS: BP 118/72; PULSE 69; RESP 16; O2SAT 99
--- NOTE | 2017-02-04 14:21 | CONS ---
[address] [address] CONSULTATION REPORT PATIENT: TEE ARIAS : 1945 MR#: [id number] ADMIT: 02/03/2017 JOB ID: [id number] DATE OF SERVICE: 02/04/2017 CONSULTATION REQUESTED BY: Jose Luis Gomez MD, and Abraham Brandon MD. HISTORY: The patient is a very pleasant, 71-year-old female, who has a complex abdominal surgical history. She has a past history of diverticulitis, and although I could not find the records of that operation by Dr. Rivero, from subsequent records he apparently did a Nanette procedure on her as he subsequently repaired a stoma site hernia in 2007. She had previously presumably undergone a Nanette procedure, then takedown of her colostomy with then ultimate ostomy site hernia repair with mesh. But, in 2011, he did an en bloc sigmoid colectomy and hysterectomy for a T4a, N0 colon cancer, for which she received postoperative radiation. She has had no evidence of recurrence. She had a colonoscopy a year ago where a possible polyp was removed, but the histology showed no adenomatous changes. She got admitted around midnight with a small bowel obstruction. She has had six other visits to this hospital since 2011 with small bowel obstructions. She also thinks she has had two or three episodes at home. She has never required an operation. Yesterday, she had onset of her central abdominal pain which increased in severity. It was associated with nausea and vomiting which then brought her to the emergency department. She had a CT scan that demonstrated a transition point in the mid to distal ileum. She has no evidence of metastatic disease. She had no evidence of recurrent incisional hernias, either in the midline or the left lower quadrant. She has no evidence of inguinal hernias. She was admitted to the hospitalist team around midnight by Dr. Brandon and I was asked to see her in consultation this morning. Today, she feels much better. She is passing gas. She has had no more nausea and vomiting and says she has no abdominal pain. She said this is a pattern that she has gone through before. Other operations include a previous tubal ligation years ago, and then she thinks a separate bilateral salpingo-oophorectomy and also she had an appendectomy. Her gallbladder is present and is normal. PAST MEDICAL HISTORY: Illnesses: 1. Colon cancer. See above. 2. Past history of diverticulitis. 3. Hypertension. 4. Depression. 5. Vitamin D deficiency. 6. Hypertriglyceridemia. HABITS: She drinks occasional alcohol. She is a nonsmoker but a long time ago was a smoker. She lives in [place]. She is . REVIEW OF SYSTEMS: Otherwise negative. She actually wonders if she can go home. She also wonders if there is any specific thing she can do in terms of diet or physical therapy or activity to prevent this. PHYSICAL EXAMINATION: Very pleasant, alert, no distress. BMI 24. Temperature is 37.0, brachial blood pressure 116 systolic. Pulse 84, regular. Respiratory rate 16, nonlabored. O2 sat 97% room air. HEENT: PERRLA, EOMI. No scleral icterus. Wears glasses. Neck: Trachea midline. No thyromegaly or other cervical masses. Lymph nodes: No appreciable cervical, scalene or inguinal adenopathy. Lungs: Clear. Cardiac exam. Regular rhythm. No murmurs or gallops appreciated. Abdomen is soft, nontender. No distention. No appreciable incisional hernias, no peritoneal signs. Extremities: No edema. Skin: No anterior abdominal or chest wall rashes. Neurologic exam: Appropriate affect. No obvious cranial nerve deficits. LABORATORY RESULTS: White count 5.9. Hematocrit is 37.8, platelet count 174,000. Electrolytes, creatinine are normal. Glucose 102. CT scan is personally reviewed by myself. I do not see any evidence of hernias. IMPRESSION: Recurrent small bowel obstruction, now clinically improved. Almost certainly is due to adhesions. I discussed options with her. I think it is fine to put her on clear liquids and I will order that. I told her I thought she should stay here today. If she could be discharged tomorrow, which I think is likely if she continues to improve, then I have asked her to return to my office for further followup and for consideration of elective laparoscopy and lysis of adhesions. I did discuss this with her and she is aware that it is not a guarantee that it would prevent further bowel obstructions and there are potential risks, including but not limited to small bowel injury. I also told her that there is no specific physical activity or dietary maneuver that she can do to prevent this. Multiple other questions were asked and answered. I spent an hour and 15 minutes with the patient and in coordination of care. KONG
--- NOTE | 2017-02-04 14:51 | NUR ---
Social Work: Initial Assessment D: Per EMR review, pt is a 71 year old female admitted for small bowel obstruction. Pt is [facility] with Medicare. Pt hat LTC through [employer] insurance with no VA benefits. PCP is Darius Hasknis DO. NOK is Mary Dela Cruz, dtr, . Advanced directives completed but not on file, CLINICAL LAW PROFESSOR requested copy. No readmit score entered at this time. CLINICAL LAW PROFESSOR met with pt at bedside. Sw role explained and contact info provided. See initial assessment. Pt lives in a single-story home in [place] with no steps to enter. Pt is I with ADLs at baseline and uses no DME. PT has never had HH or Skilled Rehab and continued to drive. Pt expresses no concerns about discharge and states her friend or daughter will transport her home when ready, A: pt who is I at baseline. P: Anticipate pt to discharge home when medically stable; CLINICAL LAW PROFESSOR to continue to follow if needs arise. LUISANA Paulino Addendum: 02/04/17 at 1454 by ARIEL SWEENEY Amended: Links added.
--- NOTE | 2017-02-04 15:12 | NUR ---
Diet Clears Pt tolerating clear liquid diet at this time. Pt has been up and ambulating well today. States that she has been passing gas and feels like she may have a BM soon. Care continues.
[2017-02-04 20:45] VITALS: BP 157/82; PULSE 70; RESP 16; O2SAT 98
[2017-02-05] MEDS: Heparin 5,000 Unit/mL Inj SUBQ SCH ×2 (00:27→08:57)
--- NOTE | 2017-02-05 03:20 | NUR ---
Activity Patient ambulated around hallway at beginning of shift. No complaints of pain or discomfort. Patient stated pain at a /10. VSS. Call light within reach. Care continues.
[2017-02-05] MEDS: 0.9% Sodium Chloride 1,000 ML IV SCH (05:33)
[2017-02-05 05:45] VITALS: BP 109/69; PULSE 71; RESP 16; O2SAT 97
[2017-02-05 06:45] LABS: Mean Corpuscular Hemoglobin 33.7 pg (27.0-35.0); Mean Corpuscular Volume 98.3 fL (81-100)
--- NOTE | 2017-02-05 10:20 | NUR ---
Social Work-readiness for discharge: Data:EMR Reviewed. Pt is on day 2 of hospitalization for cellulitis per H&P. Pt is not medically stable anticipate tomorrow. Pt resides at home alone, but has been up independent in her room. Pt declines any SW needs. No anticipated discharge needs. SW will continue to follow if needs arise. Assessment:pt who is independent at baseline. Plan:pt to discharge home when medically stable via POV. No anticipated discharge needs. SW will continue to follow if needs arise. LUISANA Rodriguez
--- NOTE | 2017-02-05 11:24 | PCM.DIMED ---
Discharge Instructions Date of Service Feb 05, 2017 Dates of Hospitalization Feb 03, 2017 at 23:50 Discharge Diagnosis Discharge Diagnosis 1. Acute small bowel obstruction. Present on admission. Clinically resolved 2. Acute hypokalemia. Present on admission. Resolved. 3. Chronic hypertension. Stable 4. History of Colon Cancer Presumed in remission. Recommend further followup as outpatient Diet Low fat, Low Sodium, Heart Healthy Activity No restrictions Call your provider Fever or Chills, Shortness of breath, Chest pain, Vomitting, Excessive diarrhea Patient Instructions Seek immediate medical attention if any new or worsening signs or symptoms occur. Follow-up plan 1. Followup with primary care provider in 7-10 days 2. Followup with surgery (Dr. Whitman) in about 1-2 weeks for further followup and for consideration of elective laparoscopy and lysis of adhesions. [address] [address] Follow-up Provider: Darius Haskins DO Provider: Terry Whitman MD, Masoud Feb 05, 2017 11:24
--- NOTE | 2017-02-05 11:41 | NUR ---
Social Work: Discharge Data:EMR Reviewed. Pt is on day 2 of hospitalization for cellulitis per H&P. Pt resides at home alone, but has been up independent in her room. SW checked in with pt at bedside and pt declines any SW needs. Pt has been medically cleared for discharge. Assessment:Pt who is independent at baseline. Plan:Pt to discharge home today POV. No anticipated discharge needs. LUISANA Garcia
--- NOTE | 2017-02-05 13:00 | NUR ---
discharged home with friend. Eating/drinking, tolerated well, ambulating, denies pain or nausea. Pt will have f/u appts with PCP and Dr Sandip Whitman
--- NOTE | 2017-02-05 16:38 | PCM.DC.MED ---
Discharge Summary Date of Service Feb 05, 2017 Dates of Hospitalization Date of Hospital Admission Feb 03, 2017 at 23:50 Date of Discharge: Feb 05, 2017 Providers: Admitting Physician: Abraham Brandon MD Primary Care Physician: Darius Haskins DO Attending Physician: Abraham Brandon MD Diagnosis at Time of Discharge Diagnosis at Time of Discharge 1. Acute small bowel obstruction. Present on admission. Clinically resolved 2. Acute hypokalemia. Present on admission. Resolved. 3. Chronic hypertension. Stable 4. History of Colon Cancer Presumed in remission. Recommend further followup as outpatient Consultations 1. Surgery (Dr. Whitman) Procedures XRay, CTs & MRIs CT Abd / Pelvis Interpretation IMPRESSION: Distal partial small bowel obstruction. Transmitted to ED at 02/03/17 - 10:44:44 PM PDT Study type: Abdominal CT IV contrast Interpretation / Wet Read by: Interpret - Radiologist (Raymond Mesa M.D.) Brief History As noted in H&P by Dr. Brandon: Amanda Laguna is a 71 year old female with Colon cancer in remission, multiple Small bowel obstructions, diverticulitis, and hypertension s/p colon resection presents to [facility] emergency department with left-sided abdominal pain. Onset gradually this afternoon, before lunchtime. At onset, the pain felt like a "gas bubble." non radiating. Aggravating factors include eating. Relieving factors include nothing by mouth and clear liquid diet. Associated symptoms include nausea and vomiting (x4). The patient has been passing gas. Her last BM was at 1700. The patient denies hematochezia, melena, hematemesis. Her last meal was at lunch (she ate a mushroom burger) She has had numerous SBO's over the last few years. Symptoms included pain on left mid to upper abdomen but no nausea or vomiting (with current episode). Symptoms resolved over a 24-hour period with diet modulation during her previous similar episode. A CT scan of the abdomen and pelvis with contrast confirmed the small bowel obstruction in the transition zone in the left lower quadrant. There is also a short segment, focal stricture involving the small bowel in the left lower quadrant, stable compared to prior examinations. Patient was diagnosed with sigmoid colon cancer in 2011 and underwent surgical resection. The tumor had invaded the uterus so she had a hysterectomy simultaneously. She had adjuvant therapy with pelvic radiation. Tumor is classified as a T4b N0. Patient went through numerous surveillance colonoscopies since cancer was found with normal examinations. Last colonoscopy was January 2016 with finding of a benign hyperplastic polyp. Her oncologist advised her to have repeat colonoscopy 3 years from that date. Case discussed with Dr Gomez, he contacted surgery and will be admitted. Patient refuses NG tube placement Hospital Course 1. Small bowel Obstruction. Present on admission. - Clinically resolved fairly quickly. - Tolerating advanced diet by day of discharge with report of positive flatus and bowel movement without any further abdominal pain, nausea or vomiting. - Seen by surgery consult and is to followup with Dr. Whitman as outpatient. 2. Hypokalemia. Present on admission. Resolved 3. Hypertension. Stable - Resume home medications. 4. Colon Cancer - continue close surveillance with Dr Booth 5. Abnormal urinalysis. UTI ruled out with culture suggestive of contamination. by day of discharge abdomen is soft, nt, nd, +bs Exam Vital Signs (Last) Date Time Temp Pulse Resp B/P Pulse Ox O2 Delivery O2 Flow Rate FiO2 02/05/17 05:45 36.9 71 16 109/69 97 Room Air Test 02/03/17 20:10 02/03/17 21:35 02/04/17 07:05 02/05/17 06:34 Urine Color Yellow (YELLOW) Urine Appearance Clear (CLEAR,HAZY) Urine pH 6.0 (5.0-8.0) Urine Specific [place] 1.030 (1.003-1.035) Urine Protein 300mg/dL (NEG,TRACE) Urine Glucose (UA) Negativemg/dL (NEGATIVE) Urine Ketones 15mg/dL (NEGATIVE) Urine Occult Blood Large (NEGATIVE) Urine Nitrite Negative (NEGATIVE) Urine Bilirubin Negative (NEGATIVE) Urine Urobilinogen Normalmg/dL (NORMAL) Urine Leukocyte Esterase Small (NEGATIVE) Urine RBC 11-50/hpf (0-2) Urine WBC 0-5/hpf (0-5) Urine Epithelial Cells Few/hpf (NONE-MOD) Urine Crystals None seen (NONE SEEN) Urine Bacteria Few/hpf (NONE-FEW) Urine Hyaline Casts None/lpf (NONE) Urine Granular Casts None seen (NONE SEEN) Urine Waxy Casts None seen (NONE SEEN) Urine Red Blood Cell Casts None seen (NONE SEEN) Urine White Blood Cell Casts None seen (NONE SEEN) Urine Mucus None seen (None Seen) Urine Trichomonas None seen (NONE SEEN) Urine Yeast None (NONE SEEN) Urinalysis Comment None Urine Culture Reflexed Indicated Hold Purple Top Tube Received (Received) Hold Blue Top Tube Received (Received) Magnesium Level 1.6mg/dL (1.6-2.6) Total Bilirubin 0.9mg/dL (0.0-1.2) Aspartate Amino Transf (AST/SGOT) 18U/L (0-50) Alanine Aminotransferase (ALT/SGPT) 12U/L (0-32) Alkaline Phosphatase 51U/L (25-165) Total Protein 5.9g/dL (6.4-8.4) Albumin 3.9g/dL (3.4-5.0) Lipase 21U/L (13-60) Hold Red Top Tube Received (Received) Hold Davis Top Tube Received (Received) Neutrophils (%) (Auto) 67.5% (40-74) Lymphocytes (%) (Auto) 18.6% (14-46) Monocytes (%) (Auto) 10.7% (4-12) Eosinophils (%) (Auto) 2.7% (0-5) Basophils (%) (Auto) 0.3% (0-3) White Blood Count 3.8th/mm3 (3.8-10.1) Red Blood Count 3.53mil/mm3 (3.90-5.20) Hemoglobin 11.9g/dL (12.0-15.6) Hematocrit 34.7% (35.0-46.0) Mean Corpuscular Volume 98.3fL (81-100) Mean Corpuscular Hemoglobin 33.7pg (27.0-35.0) Mean Corpuscular Hemoglobin Concent 34.3% (32.0-37.0) Red Cell Distribution Width 12.1% (12.3-15.4) Platelet Count 149bil/L (150-400) Sodium Level 141mEq/L (134-144) Potassium Level 3.5mEq/L (3.5-5.2) Chloride Level 108mEq/L (97-108) Carbon Dioxide Level 19mmol/L (18-29) Blood Urea Nitrogen 4mg/dL (8-27) Creatinine 0.49mg/dL (0.57-1.00) Estimat Glomerular Filtration Rate 178mL/min (>59) Glucose Level 103mg/dL (60-99) Calcium Level 8.4mg/dL (8.5-10.1) Discharge Medications Discharge Medications Amlodipine (Amlodipine) 5 Mg Tablet 5 MG PO HS (Reported) Aspirin (Aspirin) 81 Mg Tablet 81 MG PO DAILYWL (Reported) Calcium Carbonate/Vitamin D3 (Calcium 500 mg Chewable Tablet) 1 Each Tab.chew 1 EACH PO QAM (Reported) Cholecalciferol (Vitamin D3) (Vitamin D3) 50,000 Unit Capsule 50,000 UNIT PO Sundays (Reported) Gabapentin (Gabapentin) 100 Mg Capsule 300 MG PO BID (Reported) Hydrochlorothiazide (Hydrochlorothiazide) 25 Mg Tablet 12.5 MG PO QAM (Reported ) Lactobacillus Acidophilus (Probiotic) 1 Each Capsule 1 EACH PO DAILYWL (Reported ) Losartan Potassium (Losartan Potassium) 50 Mg Tablet 100 MG PO QAM (Reported) Metoprolol Tartrate (Metoprolol Tartrate) 50 Mg Tablet 50 MG PO BIDBL (Reported ) morning and noon Multivitamin (Multi Vitamin Daily) 1 Each Tablet 1 EACH PO DAILYWL (Reported) Psyllium Husk/Ca Carbonate (Metamucil Plus Calcium Capsule) 1 Each Capsule 1 EACH PO BID (Reported) Tolterodine Tartrate (Tolterodine Tartrate) 2 Mg Tablet 2 MG PO BIDBL (Reported ) MORNING AND NOON As needed Acetaminophen (Acetaminophen) 500 Mg Tablet 1,000 MG PO Q6H PRN PRN pain/fever ( Reported) Followup Plan Disposition: Home Follow-up plan 1. Followup with primary care provider in 7-10 days 2. Followup with surgery (Dr. Whitman) in about 1-2 weeks for further followup and for consideration of elective laparoscopy and lysis of adhesions. [address] [address] Discharge Diet: Low fat, Low Sodium, Heart Healthy Discharge Activity: No restrictions Patient Instructions Seek immediate medical attention if any new or worsening signs or symptoms occur. Follow-up Provider: Darius Haskins DO Provider: Terry Whitman MD Time spent 30 min copies to: Terry Whitman MD; Darius Haskins Masoud Feb 05, 2017 16:38
[2017-03-23] MEDS ORDERED: aller-tec (15:55)
[2017-03-23] MEDS ORDERED: HYDR25TA4 PO (15:55)
[2017-03-23] MEDS ORDERED: GABA-500 PO (15:55)
[2017-03-23] MEDS ORDERED: TOLT2TAB5 PO (15:55)
[2017-03-23] MEDS ORDERED: METO50TA3 PO (15:55)
[2017-03-23] MEDS ORDERED: ACET-171 PO (15:55)
[2017-03-23] MEDS ORDERED: MULT-1018 PO (15:55)
[2017-03-23] MEDS ORDERED: LOSA50TA3 PO (15:55)
[2017-03-23] MEDS ORDERED: ASPI-973 PO (15:55)
[2017-03-23] MEDS ORDERED: AMLO5TAB2 PO (15:55)
[2017-03-23] MEDS ORDERED: calcium (15:55)
[2017-03-23] MEDS ORDERED: BACI1CAP6 PO (15:55)
== END 2017-02-05 13:00 | disposition home or self-care (01) | DRG 390 ==
LOC: SED 18:41 → OSC 23:50
PROVIDERS: ADMIT Hospitalist; ATTEND Hospitalist
DX: K56.5 Intestinal adhesions [bands] with obstruction (postinfection) (principal); I10 Essential (primary) hypertension; Z87.891 Personal history of nicotine dependence; E87.6 Hypokalemia

== ENCOUNTER 2017-03-27 05:35 | Day surgery (SDC) | payer MEDICARE ==
[~2017-03-27] VITALS: Ht 162.6 cm; Wt 65.7 kg
[2017-03-27] VITALS (9 sets, daily range): BP systolic 119–145; BP diastolic 65–75; PULSE 64–78; RESP 10–17; O2SAT 94–98
[~2017-03-27 05:35] MED LIST changes: +BACI1CAP6 PO; -CALC-952 PO; -CHOL500050 PO; -LACT1CAP65 PO; +LOSA50TA3 PO; -LOSA50TA37 PO; -PSYL1CAP3 PO; +aller-tec; +calcium
[2017-03-27] MEDS ORDERED: Rocuronium 10 mg/mL 5 mL Inj ONE (05:36)
[2017-03-27] MEDS ORDERED: fentaNYL-PF 50 mCg/mL 2 mL Inj ONE (05:36)
[2017-03-27] MEDS ORDERED: Lidocaine PF 1% 30 mL Inj ONE (05:36)
[2017-03-27] MEDS ORDERED: MeTOProlol 1 mg/mL 5 mL Inj ONE (05:36)
[2017-03-27] MEDS ORDERED: Dexamethasone 4 mg/mL Inj ONE (05:36)
[2017-03-27] MEDS ORDERED: Phenylephrine/NS-PF 100 mCg/mL 5 mL Syringe IVPUSH ONE (05:36)
[2017-03-27] MEDS ORDERED: Propofol 10,000 mCg/mL 20 mL Inj ONE (05:36)
[2017-03-27] MEDS: Lactated Ringer's 1,000 ML IV SCH ×2 (05:49→07:31)
[2017-03-27] MEDS ORDERED: CeFAZolin Inj 2 GM in IV Premix 1 EACH IV ONE (06:00)
[2017-03-27] MEDS ORDERED: Heparin 5,000 Unit/mL Inj SUBQ ONE ×2 (06:00→08:00)
--- NOTE | 2017-03-27 07:24 | PCM.HPANE ---
Patient Data Date of Service: Mar 27, 2017 Surgeon Admitting Provider: Attending Provider:Terry Whitman MD Primary Care Physician:Darius Haskins DO Other Provider:Tracy Mathew Anesthesia Reason for Visit Recurrent Small Bowel Obstruction Ht/WT & BMI Height (Feet): 5 Height (Inches): 4 Weight (Kilograms): 65.7 Body Mass Index 24.00 Allergies Coded Allergies: No Known Allergies (Unverified , 03/23/17) Past Anesthesia History Anesthesia History: Denies:: Abnormal Airway, Anesthesia Reactions, Difficult Intubation, Fam Anesthesia Reaction, Fam Malignant Hypertherm, Malignant Hyperthermia Diabetes History Hx Diabetes?: No Current Bedside Blood Glucose: 89 MRSA MRSA: No Medications Blood Thinner: Aspirin Hypertension Medication: Yes Home Meds Incl Beta Mandeep: Yes Date Beta Mandeep Taken: Mar 27, 2017 Time Beta Mandeep Taken: 0400 Reported Medications Tolterodine Tartrate 2 Mg Tablet2 Mg PO BID 03/23/17 Bacillus Coagulans (Probiotic)10 Billion Cell Capsule.dr1 Each PO DAILY 03/23/17 Multivitamin (Multi Vitamin Daily)1 Each Tablet1 Each PO DAILY 30 Days Ref 0 03/23/17 Metoprolol Tartrate 50 Mg Gdwshf43 Mg PO BID 30 Days Ref 0 03/23/17 Hydrochlorothiazide 25 Mg Soucpv08.5 Mg PO DAILY 30 Days Ref 0 03/23/17 Gabapentin 100 Mg [id number] Mg PO TID 30 Days Ref 0 03/23/17 Losartan Potassium (Cozaar)50 Mg Wjwnzc03 Mg PO BID 03/23/17 [calcium] No Conflict Dnjft702 Mg BID 03/23/17 Aspirin 81 Mg Dpfmaj95 Mg PO DAILY Ref 0 03/23/17 Amlodipine 5 Mg Tablet5 Mg PO DAILY Ref 0 03/23/17 [aller-osvaldo] No Conflict Check10 Mg DAILY 03/23/17 Acetaminophen 500 Mg Uxneno089 Mg PO Q6H PRN For Pain 03/23/17 Discontinued Reported Medications Calcium Carbonate/Vitamin D3 (Calcium 500 mg Chewable Tablet)1 Each Tab.chew1 Each PO QAM 12/27/16 Tolterodine Tartrate 2 Mg Tablet2 Mg PO BIDBL #180 MORNING AND NOON 06/16/16 Cholecalciferol (Vitamin D3) (Vitamin D3)50,000 Unit Suuqpei37,000 Unit PO Sundays06/16/16 Multivitamin (Multi Vitamin Daily)1 Each Tablet1 Each PO DAILYWL 05/08/15 Aspirin 81 Mg Pandfd17 Mg PO DAILYWL 05/08/15 Acetaminophen 500 Mg Tablet1,000 Mg PO Q6H PRN pain/fever 05/08/15 Amlodipine 5 Mg Tablet5 Mg PO HS 02/17/15 Psyllium Husk/Ca Carbonate (Metamucil Plus Calcium Capsule)1 Each Capsule1 Each PO BID 09/02/14 Metoprolol Tartrate 50 Mg Nvtbsi96 Mg PO BIDBL morning and noon 08/21/14 Losartan Potassium 50 Mg Wbpict065 Mg PO QAM 08/02/14 Hydrochlorothiazide 25 Mg Shiswv15.5 Mg PO QAM 08/02/14 Lactobacillus Acidophilus (Probiotic)1 Each Capsule1 Each PO DAILYWL 08/02/14 Gabapentin 100 Mg Qyhnhqb763 Mg PO BID 08/02/14 History History of ENT Problems?: No HEENT History: Denies:: Abnormal Airway Cataracts Difficult Intubation Dysphagia Glaucoma Hearing Problem Sinus Problem TMJ Denture Type: Full- Lower Partial- Upper Teeth Condition: Missing Teeth Other HEENT Pertinent History: hx cleft palate repair Hx of Heart Problems?: Yes Cardiovascular History: Positive for:: Edema (OCASSIONAL) Hypertension Denies:: AICD Atrial Fibrillation Cardiac Surgery Chest Pain Congestive Heart Failure Heart Murmur Irregular Heartbeat Pacemaker Peripheral Vascular Thrombophlebitis Valvular Heart Disease Hx of Respiratory Problem?: No Respiratory History: Denies:: Asthma COPD Chest Surgery Cough Dyspnea Emphysema Hemoptysis Oxygen Administration Pneumonia Tuberculosis Use of C-PAP Machine Use of Inhalers / NEBS Hx Neurologic Problems?: No Neurological History: Denies:: Alzheimer's Disease CVA Dementia Dizziness Headaches Multiple Sclerosis Parkinson's Disease Seizures Hx of GI Problems?: Yes Other GI Pertinent History: hx of sigmoid colectomy with colostomy/ takedown for divertic- hx of sigmoid colectomy for colon cancer- recurrent hx of SBO- last hospitalization 01/2017 Hx of Problems?: Yes Genitourinary History: Denies:: HX of Hemodialysis Kidney Stones Urinary Tract Infection HX of Peritoneal Dialysis: No Female Hx: Denies:: Currently (hysterectomy) Endometriosis Pelvic Inflammatory Problems with Breasts? Skin History: Denies:: History Skin Disorders? 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 Denies:: Blood Transfuse Reaction Blood Transfusions (does not recall) Hx Diabetes: NoBedside Blood Glucose: 89 Hx Alcohol Use: YesAlcoholic Drinks Per Day: approx 4 drinks weeklyHx Substance Use: No Smoking Status: Former Smoker Have You Smoked inLast 12 mo: No Stop/Bang S-Snoring: Do You Snore Loudly: No T-Tired: feel tired, fatigued: No O-Obsered: Observed not breath: No P-Blood Pressure: treated: Yes B- Body Mass Index > 35 kg/m2: No A- Age over 50: Yes N- Neck Large Circumference: No G- Gender Male: No MOSES Total Score: 2 MOSES Risk Assessment: Low Risk, <3 Yes Risk Assessment Category Category 1A: Patient has history of documented sleep apnea, and HAS NOT received any narcotic, sedative or anesthesia administration during this stay. Category 1B: Patient has history of documented sleep apnea, and HAS received any narcotic , sedative or anesthesia administration during this stay Category 2: Patient has SUSPECTED Obstructive Sleep Apnea, and HAS received any narcotic , sedative or anesthesia administration during this stay. Category 3: Patient has SUSPECTED Obstructive Sleep Apnea and HAS NOT received narcotic, sedative or anesthesia administration during this stay. Category 4: Outpatient in Procedural Areas with known sleep apnea or who screen positive for High Risk via the STOP/BANG questionnaire. Exam Exam Vital Signs Vital Signs Date Time Temp Pulse Resp B/P Pulse Ox O2 Delivery O2 Flow Rate FiO2 03/27/17 06:00 36.2 64 16 119/66 97 Room Air General Appearance: Alert, Oriented X3, Cooperative, No Acute Distress HEENT/AIRWAY: MP 2 Lungs: Clear to Auscultation, Normal Air Movement Heart: Exam Unremarkable, Regular Rate/Rhythm, No Murmurs/Rubs/Gallops Meds/Labs/Diagnostics Admission Meds Current Medications Lactated Ringer's (Lr) 1,000 ml @ 120 mls/hr Q8H20M IV Last administered on 6/ 13/17at 05:49; Start 03/27/17 at 05:00; Stop 03/27/17 at 13:19 Bedside Blood Glucose: 89 Plan Impression Patient chart reviewed, patient interviewed and anesthestic plan with risks, benefits, and alternatives discussed, and informed consent obtained. NPO per Anesth. Guidelines: No ASA Physical Status: ASA2 Mod Systemic Disease Anesthetic Plan: GA Bene/Risks/Altern/Consents: Yes HP Complete Prior to Induction: Yes oJse Alejandro George MD Mar 27, 2017 07:24
[2017-03-27] MEDS ORDERED: Bupivacaine-MPF 0.25% 30 mL Inj INFILTRATE ONE (08:03)
[2017-03-27] MEDS ORDERED: Lactated Ringer's 1,000 ML IV SCH (08:12)
[2017-03-27] MEDS ORDERED: Lactated Ringer's 500 ML IV PRN (08:12)
[2017-03-27] MEDS ORDERED: Phenylephrine 10,000 mCg/mL Inj IVPUSH PRN (08:15)
[2017-03-27] MEDS ORDERED: MetoCLOpramide 5 mg/mL 2 mL Inj IVPUSH PRN (08:15)
[2017-03-27] MEDS ORDERED: fentaNYL-PF 50 mCg/mL 2 mL Inj IVPUSH PRN (08:15)
[2017-03-27] MEDS ORDERED: Ondansetron 2 mg/mL 2 mL Inj IVPUSH PRN (08:15)
[2017-03-27] MEDS ORDERED: EPHEDrine Sulfate 50 mg/mL Inj IVPUSH PRN (08:15)
[2017-03-27] MEDS ORDERED: Atropine 0.4 mg/mL Inj IVPUSH PRN (08:15)
[2017-03-27] MEDS ORDERED: Labetalol 5 mg/mL 4 mL Inj IV PRN (08:15)
[2017-03-27] MEDS ORDERED: HYDROmorphone 1 mg/mL Inj IVPUSH PRN (08:15)
[2017-03-27] MEDS ORDERED: hydrALAZINE 20 mg/mL Inj IVPUSH PRN (08:15)
[2017-03-27] MEDS ORDERED: HYDROcodone-APAP 5-325 mg Tablet PO PRN (10:25)
--- NOTE | 2017-03-27 10:34 | PCM.ANEP1 ---
Post Anesthesia PACU Phase 1 Assessment Date of Service: Mar 27, 2017 Vital Signs 36.7 145/75 78 12 94% RA Anesthetic Administered: GA Level of Alertness: Sleepy, easy to arouse TOBIAS's with Equal Strength: Yes Pain: No Nausea or Vomiting: No CV Function & Hydration Stable: Yes Airway Device: Oxygen Delivery: Room Air Lungs: Clear to Auscultation, Normal Air Movement PACU Phase 2 Assessment Complications: No Follow up Care: No Patient Instructions Provided: Yes Jose Alejandro George MD Mar 27, 2017 10:33
[2017-03-27] MEDS ORDERED: Lactated Ringer's 1,000 ML IV ONE (10:50)
[2017-03-27 11:14] LABS: APPEARANCE,URINE SLIGHTLY CLOUDY (CLEAR,HAZY); COLOR,URINE STRAW (YELLOW)
[2017-03-27 11:15] LABS: OCCULT BLOOD,URINE NEGATIVE (NEGATIVE); UROBILINOGEN,URINE NORMAL (NORMAL)
--- NOTE | 2017-03-27 11:38 | OP ---
[address] [address] OPERATIVE REPORT PATIENT: TEE ARIAS : 1945 MR#: [id number] ADMIT: 03/27/2017 JOB ID: [id number] DATE OF SURGERY: 03/27/2017 PREOPERATIVE DIAGNOSIS(ES): 1. Recurrent small bowel obstruction. 2. Multiple intra-abdominal operations and postoperative radiation. POSTOPERATIVE DIAGNOSIS(ES): 1. Recurrent small bowel obstruction. 2. Multiple intra-abdominal operations and postoperative radiation. 3. Extensive intra-abdominal adhesions. OPERATION: 1. Diagnostic laparoscopy. 2. Laparoscopic lysis of adhesions. SURGEON: Terry Whitman M.D. BIOSECURITY OFFICER: Efren Rivas PA-C INDICATIONS: A 71-year-old female, who has a very complex past abdominal surgical history. In 1971 she had a tubal ligation. In 2000 she required an emergent sigmoid colectomy and colostomy for diverticulitis with subsequent delayed takedown of her colostomy. She developed a stoma site hernia that was repaired with mesh in 2008. 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 Her final pathology report was T4 N0 and she had postoperative radio chemotherapy. Subsequent to that, she has had eight admissions for small bowel obstruction and three that had very similar symptoms to what she was admitted for but she was able to stay at home and they resolved. She had a small bowel follow through on February 16, 2017 that was normal. She had a recent CT scan that shows no evidence of malignancy, and after discussing options with the patient on three separate occasions, once in her most recent hospitalization and two as an outpatient, it was ultimately elected to proceed with a laparoscopic lysis of adhesions and possible laparotomy. FINDINGS: She, as expected, had diffuse adhesions. The worst adhesions were in the right lower quadrant. Multiple loops of bowel were densely adhered to the abdominal wall and also because she has a short colon, the colon was lying over the top of the small bowel, but it itself was not obstructed. There was no evidence of malignancy. After freeing up the abdominal wall adhesions particularly, the right lower quadrant abdominal wall adhesions, as well as adhesions to the omentum, the anterior abdominal wall and the pelvis on the left, it was elected to quit. I specifically chose not to dissect down deep into the pelvis where there were definite loops of small bowel but also loops of small bowel that had been irradiated. It was also of interest at the conclusion the small bowel was vigorously anand throughout its length without evidence of obstruction. There was no evidence of injury to the bowel. PROCEDURE: At the beginning and end of the operation, the SCOAP checklist was completed. A general endotracheal anesthetic was induced. Pneumatic hose were placed. She received subcutaneous heparin and intravenous antibiotics. A Rankin catheter was inserted and removed at the end of the operation. Using ChloraPrep, she was prepped and draped in the usual fashion and all trocar sites were infiltrated with 0.5% bupivacaine. Using a Veress needle through a left subcostal incision, a pneumoperitoneum was established, and then using an optical port, a 5 mm port was placed at the same site. Eventually four additional ports were placed, two on the left side, two on the right side under direct visualization. I started by taking omental adhesions down from the anterior abdominal wall but, I ultimately stopped at that because then I realized that they were allowing me to see the small bowel adhesions better. When I took down small bowel adhesions which consumed the vast majority of the 2.5 hour operation, I did not use cautery. As stated above, very dense adhesions were present in the right lower quadrant up to the abdominal wall and these were all ultimately taken down without any obvious injury to the intestine. I then irrigated the abdominal cavity. There was only a small amount of blood loss. There was no evidence of bowel injury. As stated above, the peristalsis was visualized throughout the small bowel without evidence of obstruction. The estimated blood loss was 20 cc. There were no apparent complications. Rankin catheter was removed before leaving the operating room. Trocars were removed without evidence of bleeding. Skin incisions closed with subcuticular 4-0 Vicryl, Steri-Strips and Band-Aids. The final sponge, needle and instrument counts were announced as correct and the patient was returned to recovery in stable condition. Critical assistance provided by Efren Jeronimo, PAC Modifier-22: This was a very difficult laparoscopic lysis of adhesions because of her multiple operations and radiation with at least 2.5 hours devoted to lysis of adhesions. KONG
== END 2017-03-27 23:59 | disposition home or self-care (01) ==
LOC: SAS 05:35
PROVIDERS: ATTEND Surgery
DX: K56.5 Intestinal adhesions [bands] with obstruction (postinfection) (principal); I10 Essential (primary) hypertension; E78.00 Pure hypercholesterolemia, unspecified; G62.9 Polyneuropathy, unspecified; M19.90 Unspecified osteoarthritis, unspecified site; F32.9 Major depressive disorder, single episode, unspecified; Z90.710 Acquired absence of both cervix and uterus; Z85.038 Personal history of other malignant neoplasm of large intestine; Z87.891 Personal history of nicotine dependence; Z79.82 Long term (current) use of aspirin; Z96.643 Presence of artificial hip joint, bilateral; Z92.3 Personal history of irradiation; Z92.21 Personal history of antineoplastic chemotherapy
CPT/HCPCS: 49329; 81000; J0690; J1644; J2405; J3490; J7120